=== PATIENT | male | born 1995 | race Caucasian/White ===

== ENCOUNTER 2017-08-29 03:18 | Inpatient (IN) | payer OTHER, MEDICAID ==
[~2017-08-29] VITALS: Ht 188 cm; Wt 96.1 kg
[2017-08-29] VITALS (8 sets, daily range): BP systolic 153–194; BP diastolic 70–85; PULSE 53–74; RESP 14–18; TEMP 96.1–98.8; O2SAT 95–100
[2017-08-29] MEDS ORDERED: ceFAZolin 2 GM PREMIX 50 ML ONE (03:27)
[2017-08-29] MEDS ORDERED: DIPHTH/TETANUS/ACEL PERTUSSIS (BOOSTER) 0.5 ML VIAL/PFS IM ONE (03:27)
[2017-08-29] MEDS ORDERED: GENTAMICIN 80 MG PREMIX 100 ML ONE (03:31)
[2017-08-29] MEDS ORDERED: ONDANSETRON HCL 4 MG/2 ML VIAL ONE (03:35)
[2017-08-29] MEDS ORDERED: MORPHINE SULFATE 4 MG/ML INJ ONE (03:35)
[2017-08-29 03:53] LABS: BASOPHIL % 0.2 % (0.0-2.0); EOSINOPHIL % 0.1 % (0.0-4.0); HEMATOCRIT 41.9 % (39.0-51.0); HEMOGLOBIN 14.6 GM/DL (13.0-17.0); LYMPH % 10.9 % (9.0-44.0); LYMPHOCYTE # 2.2 TH/MM3 (1.0-4.8); MEAN CELL VOLUME 95.6 FL (80.0-100.0); MEAN CORPUSCULAR HEMOGLOBIN 33.2 PG (27.0-34.0); MEAN CORPUSCULAR HGB CONC 34.8 % (32.0-36.0); MONO % 3.6 % (0.0-8.0); MONOCYTE # 0.7 TH/MM3 (0-0.9); NEUT % 85.2 % (16.0-70.0); PLATELET COUNT 422 TH/MM3 (150-450); RED BLOOD COUNT 4.39 MIL/MM3 (4.50-5.90); RED CELL DISTRIBUTION WIDTH 12.9 % (11.6-17.2); WHITE BLOOD COUNT 19.9 TH/MM3 (4.0-11.0)
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
[2017-08-29 04:00] LABS: INTERNATIONAL NORMALIZED RATIO 1.1 RATIO; PROTHROMBIN TIME - PATIENT 10.7 SEC (9.8-11.6)
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
[2017-08-29] MEDS ORDERED: IOHEXOL 350 MG/ML 10 ML VIAL (for RAD DIAG) IVCONTRAST ONE (04:01)
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
[2017-08-29] MEDS: LACTATED RINGER'S 1000 ML INJ 1,000 ML IV SCH ×3 (04:12→20:12)
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
[2017-08-29] MEDS ORDERED: SODIUM CHLORIDE 0.9% FLUSH 10 ML FLUSH IV FLUSH PRN ×2 (04:15→12:30)
[2017-08-29] MEDS ORDERED: MISCELLANEOUS NURSING INFORMATION XX SCH ×2 (04:15)
[2017-08-29] MEDS ORDERED: MAGNESIUM HYDROXIDE SUSP 30 ML CUP PO PRN ×3 (04:15→12:30)
[2017-08-29] MEDS ORDERED: CHLORHEXIDINE GLUCONATE 2 % 1 PACK (2 CLOTHS) TOP PRN (04:15)
[2017-08-29] MEDS ORDERED: MORPHINE SULFATE 2 MG/ML INJ IV PUSH PRN (04:15)
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
[2017-08-29] MEDS: MORPHINE SULFATE 4 MG/ML INJ IV PUSH PRN ×2 (04:30→08:24)
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
[2017-08-29] MEDS: DOCUSATE SODIUM 100 MG CAP PO SCH ×2 (09:00→20:24)
[2017-08-29] MEDS ORDERED: ceFAZolin INJ 1,000 MG VIAL ONE (09:35)
[2017-08-29] MEDS ORDERED: SODIUM CHLOR 0.9% 250 ML INJ 250 ML ONE (09:36)
[2017-08-29] MEDS ORDERED: VANCOMYCIN HCL 1000 MG VIAL ONE (09:36)
[2017-08-29] MEDS ORDERED: GENTAMICIN SULFATE 80 MG/2 ML VIAL ONE (09:36)
[2017-08-29] MEDS ORDERED: PERC5TAB12 PO (09:48)
[2017-08-29] MEDS ORDERED: DO NOT ADM ANY ANTICOAGULANT DRUGS PRN (11:38)
[2017-08-29] MEDS ORDERED: MIDAZOLAM HCL 2 MG/2 ML VIAL ONE (11:45)
[2017-08-29] MEDS ORDERED: LACTATED RINGER'S 1000 ML INJ 1,000 ML IV ONE (12:00)
[2017-08-29] MEDS ORDERED: NEOSTIGMINE 5 MG/5 ML SYRINGE IV PUSH ONE (12:00)
[2017-08-29] MEDS ORDERED: KETOROLAC TROMETHAMINE 30 MG/ML (IVP) VIAL IV PUSH ONE (12:00)
[2017-08-29] MEDS ORDERED: ROCURONIUM INJ 50 MG/5 ML SYRINGE IV PUSH ONE (12:00)
[2017-08-29] MEDS ORDERED: LIDOCAINE HCL 1% PF 5 ML SYRINGE OTHER ONE (12:00)
[2017-08-29] MEDS ORDERED: PROPOFOL 200 MG/20 ML AMP IV ONE (12:00)
[2017-08-29] MEDS ORDERED: ONDANSETRON HCL 4 MG/2 ML VIAL IV PUSH ONE (12:00)
[2017-08-29] MEDS ORDERED: GLYCOPYRROLATE 1 MG/5 ML SYRINGE IV PUSH ONE (12:00)
[2017-08-29] MEDS ORDERED: DEXAMETHASONE SOD PHOS 4 MG/ML VIAL IV ONE (12:00)
[2017-08-29] MEDS ORDERED: *MEPERIDINE 25 MG INJ VIAL PERIprocedural Use ONLY ONE (12:10)
--- NOTE | 2017-08-29 12:12 | PD.OP ---
cc: Kolby Frazier Jr., MD Operative Report Date of Surgery: Aug 29, 2017 Preoperative Diagnosis: Right grade 3 open tibia fracture Postoperative Diagnosis: Same Procedure: #1 irrigation debridement #2 placement of external fixation Anesthesia: Gen. Surgeon: Kolby Frazier Fitness Worker(s): SUN Stallworth The surgical procedure was assisted by my Advanced Registered Nurse Practitioner. My STICKER ON presence was necessary throughout this case for the manipulation and positioning of the surgical extremity. My STICKER ON was assisting me throughout the duration of this procedure. The skill set of an Advance Registered Nurse Practitioner was medically necessary to complete this procedure. During the surgical case, the forestry technician was working at the back table and the Advance Registered Nurse Practitioner was directly assisting me. Resident Surgeon: none Operation and Findings: This patient sustained severe injury to the right leg resulting in a type III open tibia fracture. Patient was seen and evaluated preoperatively and found to have too much swelling, soft tissue contamination and poor soft tissue condition to proceed with definitive open reduction internal fixation. Risk and benefits of surgery were discussed in depth with the patient's son and consent was confirmed. Surgical site was marked. Patient was brought to operating room and placed on the OR table. Patient was given IV sedation and GETA. Patient received IV antibiotics and timeout procedure was performed. Operative leg was prepped with alcohol followed by Hibiclens and draped in the usual sterile fashion. Two small incisions were made along the anterior tibia and the distal femur. Soft tissue was dissected bluntly. Cannulas were placed down to the cortex of bone. Pin sites were predrilled. Synthes SIMMONS-coated pins were placed into the tibia and femur. Fluoroscopy was used to confirm appropriate pin placement. An external fixator construct was now created with clamps and bars. Attention now turned to irrigation. The wound was extended to further examine the extent of the injury. There was severe comminution of the fracture and contamination. The wound was thoroughly irrigated and debrided to the extent of periosteal stripping of soft tissue degloving. Next attention was turned to reduction. Traction was applied. Fracture was manipulated. Good alignment of the fracture was obtained. Fluoroscopy was used to confirm appropriate alignment of fracture. The external fixator was now tightened to hold reduction. Sterile dressings were applied to the medial ankle wound. Patient was awakened and transferred to recovery room in stable condition. The soft tissue was reevaluated, the compartments were soft and compressible with no signs of compartment syndrome in the left lower extremity. We will reevaluate the condition of the soft tissue to determine an appropriate time for definitive fixation. IMPLANTS USED Synthes POSTP-OP PLAN OF ACTIVITY Antibiotics: Ancef, vancomycin 48 hours Antiocoagulation: Lovenox Weight bearing status: Nonweightbearing Dressing: Change daily, by RN starting postop day 2 Future procedure planned: OR thursday, Kolby Robbins Jr., MD Aug 29, 2017 12:12
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
[2017-08-29] MEDS ORDERED: ZOLPIDEM TARTRATE 5 MG TAB PO PRN (12:30)
[2017-08-29] MEDS ORDERED: oxyCODONE/ACETAMINOPHEN 5 MG/325 MG TAB PO PRN (12:30)
[2017-08-29] MEDS ORDERED: BISACODYL 10 MG SUPP RECTAL PRN ×2 (12:30)
[2017-08-29] MEDS ORDERED: Post-op Orders (for Pharmacy) XX ONE ×2 (12:30)
[2017-08-29] MEDS ORDERED: LACTULOSE SYRUP 20 GM/30 ML CUP PO PRN ×2 (12:30)
[2017-08-29] MEDS ORDERED: SENNOSIDES 8.6 MG TAB PO PRN ×2 (12:30)
[2017-08-29] MEDS ORDERED: PROMETHAZINE HCL 25 MG TAB PO PRN (12:30)
[2017-08-29] MEDS: oxyCODONE/ACETAMINOPHEN 5 MG/325 MG TAB PO PRN ×3 (12:50→21:51)
[2017-08-29] MEDS: KETOROLAC TROMETHAMINE 30 MG/ML (IVP) VIAL IVP SCH ×3 (12:50→23:26)
--- NOTE | 2017-08-29 13:10 | OTSOAPIP ---
PATIENT OFF FLOOR FOR SURGERY THIS DATE. WILL ATTEMPT EVALUATION TOMORROW POST SURGERY. Therapist: Elzbieta Leon, OTR/L Signature on file
[2017-08-29] MEDS: ONDANSETRON HCL 4 MG/2 ML VIAL IV PUSH PRN ×2 (15:12→20:27)
[2017-08-29] MEDS: MORPHINE SULFATE 8 MG/ML INJ IV PUSH PRN ×2 (15:57→20:25)
[2017-08-29] MEDS: DOCUSATE SODIUM 50 MG/SENNA 8.6 MG TAB PO SCH (20:24)
[2017-08-29] MEDS: VANCOMYCIN INJ 1,000 MG in SODIUM CHLOR 0.9% 250 ML INJ 250 ML IV SCH (20:32)
[2017-08-29] MEDS: SODIUM CHLORIDE 0.9% FLUSH 10 ML FLUSH IV FLUSH SCH (20:35)
[2017-08-29] MEDS ORDERED: DOCUSATE SODIUM 50 MG/SENNA 8.6 MG TAB PO SCH (21:00)
[2017-08-29] MEDS ORDERED: SODIUM CHLORIDE 0.9% FLUSH 10 ML FLUSH IV FLUSH SCH (21:00)
--- NOTE | 2017-08-29 22:29 | RADRPT ---
EXAM DATE/TIME: 08/29/2017 10:34 [facility] COMPARISON: No previous studies available for comparison. INDICATIONS : Lower leg fracture- ORIF. MEDICAL HISTORY : None. SURGICAL HISTORY : None. ENCOUNTER: Initial ACUITY: 1 day PAIN SCORE: Non-responsive. LOCATION: Right Lower leg. FINDINGS: 3 spot intraoperative fluoroscopic views of the right tibia and fibula demonstrate comminuted fractur e of the proximal tibial metaphysis and fibular shaft. External fixation hardware is present across t he tibia on image one. CONCLUSION: Intraoperative radiographs of the tibia and fibula fractures are noted as above. Lawrence Randall MD on August 29, 2017 at 22:27 Board Certified Radiologist. This report was verified electronically.
[2017-08-29] MEDS: ENOXAPARIN SODIUM 30 MG/0.3 ML SYRINGE SQ SCH (23:26)
[2017-08-30] VITALS (7 sets, daily range): BP systolic 122–159; BP diastolic 50–73; PULSE 46–100; RESP 16–18; TEMP 96.7–98.6; O2SAT 97–99
[2017-08-30] MEDS: oxyCODONE/ACETAMINOPHEN 5 MG/325 MG TAB PO PRN ×3 (02:22→10:10)
[2017-08-30] MEDS ORDERED: CHLORHEXIDINE GLUCONATE 2 % 1 PACK (2 CLOTHS) TOP SCH (04:00)
[2017-08-30 04:18] LABS: BASOPHIL % 0.2 % (0.0-2.0); EOSINOPHIL # 0.1 TH/MM3 (0-0.4); EOSINOPHIL % 0.6 % (0.0-4.0); HEMATOCRIT 27.9 % (39.0-51.0); HEMOGLOBIN 10.1 GM/DL (13.0-17.0); LYMPH % 20.7 % (9.0-44.0); LYMPHOCYTE # 2.1 TH/MM3 (1.0-4.8); MEAN CELL VOLUME 95.1 FL (80.0-100.0); MEAN CORPUSCULAR HEMOGLOBIN 34.5 PG (27.0-34.0); MEAN PLATELET VOLUME 8.1 FL (7.0-11.0); MONO % 9.7 % (0.0-8.0); NEUT % 68.8 % (16.0-70.0); PLATELET COUNT 221 TH/MM3 (150-450); RED BLOOD COUNT 2.93 MIL/MM3 (4.50-5.90); WHITE BLOOD COUNT 10.2 TH/MM3 (4.0-11.0)
[2017-08-30 04:36] LABS: BICARBONATE 29.8 MEQ/L (21.0-32.0); CALCIUM 7.9 MG/DL (8.5-10.1); CREATININE 0.69 MG/DL (0.60-1.30)
[2017-08-30 04:37] LABS: MEAN CORPUSCULAR HGB CONC 36.3 % (32.0-36.0)
[2017-08-30] MEDS: KETOROLAC TROMETHAMINE 30 MG/ML (IVP) VIAL IVP SCH ×4 (06:09→23:49)
[2017-08-30] MEDS: LACTATED RINGER'S 1000 ML INJ 1,000 ML IV SCH (06:09)
[2017-08-30 06:50] LABS: BANDS 3 % (0-6); LYMPHOCYTES 19 % (9-44); MONOCYTES 5 % (0-8); NEUTROPHIL # MANUAL DIFF 7.7 TH/MM3 (1.8-7.7); POLYS (SEG NEUTROPHILS) 72 % (16-70)
[2017-08-30 06:53] LABS: OVALOCYTES 1+ (NORMAL)
[2017-08-30] MEDS: DOCUSATE SODIUM 50 MG/SENNA 8.6 MG TAB PO SCH ×2 (08:59→20:43)
[2017-08-30] MEDS: DOCUSATE SODIUM 100 MG CAP PO SCH (08:59)
[2017-08-30] MEDS: SODIUM CHLORIDE 0.9% FLUSH 10 ML FLUSH IV FLUSH SCH ×2 (09:00→20:38)
[2017-08-30] MEDS: VANCOMYCIN INJ 1,000 MG in SODIUM CHLOR 0.9% 250 ML INJ 250 ML IV SCH ×2 (09:00→20:48)
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
[2017-08-30] MEDS: DIAZEPAM 2 MG TAB PO SCH ×2 (12:39→22:34)
[2017-08-30] MEDS: MAGNESIUM HYDROXIDE SUSP 30 ML CUP PO SCH ×2 (12:41→20:43)
[2017-08-30] MEDS: ACETAMINOPHEN 1000 MG/100 ML 100 ML IV SCH ×3 (12:41→22:34)
[2017-08-30] MEDS: ENOXAPARIN SODIUM 30 MG/0.3 ML SYRINGE SQ SCH ×2 (12:41→23:00)
[2017-08-30] MEDS ORDERED: PERI PO (13:12)
[2017-08-30] MEDS ORDERED: MAGN30S PO (13:12)
[2017-08-30] MEDS ORDERED: WALKER WHEELS/F1 MIS (13:14)
--- NOTE | 2017-08-30 13:15 | HHI.FF ---
Face to Face Verification Diagnosis: (1) Fracture tibia/fibula Physical Therapy Order: Evaluate and Treat, Improve ambulation, Strength and gait training Home Health Nursing Order: Medical education Signs/symptoms of disease process Medication education-adverse effect I have seen patient Rodriguez Guaman, II on 08/30/17. My clinical findings support the need for the requested home health care services because: Ltd mobility - disease progression Deconditioned w/ increased weakness Limited ability to care for self High risk of falls Infection w/ risk of complications I certify that my clinical findings support that this patient is homebound because: Post-op weakness Unsteady gait/balance Unsafe to leave home unassisted Sin-qsjwoamthu-mpyfolca bed/chair Unable to use public transportation The exam, history, and the medical decision-making described in the above note were completed with the assistance of the mid-level provider. I reviewed and agree with the findings presented. I attest that I had a hldt-ko-[id number] encounter with the patient on the same day, and personally performed and documented my assessment and findings in the medical record. Renee Robins Aug 30, 2017 13:15 Juan Jose Vaughan MD Aug 30, 2017 14:49
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
[2017-08-30] MEDS: MULTIVITAMINS/MINERALS THERAPEUTIC TAB PO SCH (20:38)
[2017-08-30] MEDS ORDERED: SODIUM CHLORID 0.9% 500 ML IV PRN (23:30)
[2017-08-30] MEDS ORDERED: LACTATED RINGER'S 1000 ML IV PRN (23:30)
[2017-08-30] MEDS ORDERED: CHLORHEXIDINE GLUCONATE 2 % 1 PACK (2 CLOTHS) TOPICAL PRN (23:30)
[2017-08-30] MEDS ORDERED: POVIDONE IODINE 5% (ANTISEPSIS KIT) 4 APPLICATIONS EACH NARE PRN (23:30)
[2017-08-31] MEDS: ONDANSETRON HCL 4 MG/2 ML VIAL IV PUSH PRN (02:46)
[2017-08-31] MEDS: ACETAMINOPHEN 1000 MG/100 ML 100 ML IV SCH (05:28)
[2017-08-31] MEDS: DIAZEPAM 2 MG TAB PO SCH ×3 (06:00→22:09)
[2017-08-31 06:07] LABS: AUTOMATED NEUTROPHIL # 3.1 TH/MM3 (1.8-7.7); BASOPHIL % 0.4 % (0.0-2.0); EOSINOPHIL # 0.1 TH/MM3 (0-0.4); EOSINOPHIL % 1.4 % (0.0-4.0); HEMATOCRIT 26.7 % (39.0-51.0); HEMOGLOBIN 9.7 GM/DL (13.0-17.0); LYMPH % 36.6 % (9.0-44.0); LYMPHOCYTE # 2.1 TH/MM3 (1.0-4.8); MEAN CELL VOLUME 95.4 FL (80.0-100.0); MEAN CORPUSCULAR HEMOGLOBIN 34.7 PG (27.0-34.0); MEAN PLATELET VOLUME 8.7 FL (7.0-11.0); MONO % 7.8 % (0.0-8.0); MONOCYTE # 0.5 TH/MM3 (0-0.9); NEUT % 53.8 % (16.0-70.0); PLATELET COUNT 177 TH/MM3 (150-450); RED CELL DISTRIBUTION WIDTH 13.3 % (11.6-17.2); WHITE BLOOD COUNT 5.8 TH/MM3 (4.0-11.0)
[2017-08-31] MEDS: KETOROLAC TROMETHAMINE 30 MG/ML (IVP) VIAL IVP SCH ×3 (06:09→22:10)
[2017-08-31 06:14] LABS: MEAN CORPUSCULAR HGB CONC 36.3 % (32.0-36.0)
[2017-08-31 06:25] LABS: BICARBONATE 29.3 MEQ/L (21.0-32.0); CALCIUM 7.9 MG/DL (8.5-10.1); CREATININE 0.63 MG/DL (0.60-1.30)
[2017-08-31 06:31] VITALS: BP 160/71; PULSE 73; RESP 16; TEMP 97.2; O2SAT 100
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
[2017-08-31] MEDS ORDERED: GENTAMICIN SULFATE 80 MG/2 ML VIAL ONE (07:21)
[2017-08-31] MEDS ORDERED: VANCOMYCIN HCL 1000 MG VIAL ONE (07:22)
[2017-08-31] MEDS ORDERED: ceFAZolin 2 GM PREMIX 50 ML ONE (07:23)
[2017-08-31 08:05] VITALS: BP 143/70; PULSE 85; RESP 19; TEMP 97.5; O2SAT 100
[2017-08-31] MEDS: MULTIVITAMINS/MINERALS THERAPEUTIC TAB PO SCH ×2 (09:00→21:02)
[2017-08-31] MEDS: VANCOMYCIN INJ 1,000 MG in SODIUM CHLOR 0.9% 250 ML INJ 250 ML IV SCH (09:00)
[2017-08-31] MEDS: SODIUM CHLORIDE 0.9% FLUSH 10 ML FLUSH IV FLUSH SCH ×2 (09:00→21:00)
[2017-08-31] MEDS: DOCUSATE SODIUM 50 MG/SENNA 8.6 MG TAB PO SCH ×2 (09:00→21:00)
[2017-08-31] MEDS: MAGNESIUM HYDROXIDE SUSP 30 ML CUP PO SCH ×2 (09:00→21:00)
[2017-08-31] MEDS ORDERED: FAMOTIDINE 20 MG/2 ML VIAL ONE (09:01)
--- NOTE | 2017-08-31 11:39 | PD.OP ---
cc: Ryan Barry MD Operative Report Date of Surgery: Aug 31, 2017 Preoperative Diagnosis: Open right proximal tibia shaft fracture Postoperative Diagnosis: Procedure: Removal of external fixation, irrigation debridement of open right tibia fracture, intramedullary nail fixation right tibia Anesthesia: Gen. Surgeon: Ryan Barry Signals Analyst(s): OMAYRA To PA-C The surgical procedure was assisted by my physician contact lens assistant. My P.A. presence was necessary throughout this case for the manipulation and positioning of the surgical extremity. My P.A. was assisting me throughout the duration of this procedure. The skill set of a physician contact lens assistant was medically necessary to complete this procedure. During the surgical case the medical surgical tech was working at the back table and the physician contact lens assistant was directly assisting me. Operation and Findings: Implants: ITS [9]mm x [360]mm tibial nail Plan of activity: Nonweightbearing right leg Patient was seen and examined preoperatively. An informed consent was obtained from patient after detailed discussion of risk and benefits. Risks of surgery include bleeding, infection, painful hardware, nonunion, malunion, leg length discrepancy, need for hardware removal, and medical complications associated with anesthesia including blood clots, stroke, heart attack, and were discussed. Operative site was marked. Patient was brought to the operating room placed on or table. Patient received IV antibiotics and was given IV sedation GETA. Timeout procedure was performed. Procedure began with removal of external fixation. Clamps were loosened. Clamps and bars were now removed from the pins. The pins were now removed using a drill. Operative leg was now prepped with alcohol Hibiclens and draped in usual sterile fashion. Procedure began with irrigation and debridement of the open fracture. The traumatic laceration was opened anteriorly. Skin subcutaneous tissue and fascia were sharply debrided. Overall the tissue appeared to be relatively clean and healthy. Curettes were used to debride bone. Multiple small bone fragments were excised. After thorough debridement, the wound was thoroughly irrigated with 3 L of sterile saline. Next attention was turned towards reduction of fracture. Traction was applied. Fracture was reduced. There was comminution of the fracture. The fracture reduced and appropriate alignment was achieved. Next a 3 cm incision was made proximal to the patella. Quadriceps tendon was split in line with fibers. Cannulas were placed in the patellofemoral joint to protect the articular surface at all times. A guidepin was placed into the tibia and advanced in the tibial canal. Fluoroscopy was used to confirm appropriate guidepin placement. An opening reamer was used to open the tibial canal. A ball-tipped guidewire was advanced down the tibial canal. Guidepin was passed across the fracture site into the center of the distal tibia. Fluoroscopy confirmed guidepin placement. The nail length was now measured. 3 Steinmann pins were placed proximally to help control the reduction of the proximal segment during reaming and nail placement. The fracture was now held in a reduced position and the canal was reamed. The canal was reamed up to size 10.5. A ITS nail was now selected. Next the nail was fully seated. Using the insertion handle as a guide 4 proximal interlocking screws were placed. At this point the insertion jig was removed. Rotational alignment of the fracture was obtained. Gentle traction was also applied to restore length of the tibia. The tibia was extremely comminuted and difficult to gauge rotation and length. The fibula fracture was visualized and used to aid in obtaining appropriate reduction of the tibia fracture. Using perfect klawock technique 2 distal interlocking screws were placed. Fluoroscopy confirmed excellent of fracture with well-placed hardware. Incisions and the knee joint were thoroughly irrigated with sterile saline. Fascia was closed with #1 PDS, subcutaneous tissues closed with 3-0 PDS and skin was closed with 3-0 nylon and hugo. Sterile dressings were applied. Patient was awakened and transferred to recovery in stable condition. Ryan Barry MD Aug 31, 2017 11:39
[2017-08-31] MEDS ORDERED: PROPOFOL 200 MG/20 ML AMP IV ONE (12:00)
[2017-08-31] MEDS ORDERED: LIDOCAINE HCL 1% PF 5 ML SYRINGE OTHER ONE (12:00)
[2017-08-31] MEDS ORDERED: SUCCINYLCHOLINE CHLORIDE 100 MG/5 ML SYRINGE IV PUSH ONE (12:00)
[2017-08-31] MEDS ORDERED: ROCURONIUM INJ 50 MG/5 ML SYRINGE IV PUSH ONE (12:00)
[2017-08-31] MEDS ORDERED: ONDANSETRON HCL 4 MG/2 ML VIAL IV ONE (12:00)
[2017-08-31] MEDS ORDERED: GLYCOPYRROLATE 1 MG/5 ML SYRINGE IV PUSH ONE (12:00)
[2017-08-31] MEDS ORDERED: DEXAMETHASONE SOD PHOS 4 MG/ML VIAL IV ONE (12:00)
[2017-08-31] MEDS ORDERED: NEOSTIGMINE 5 MG/5 ML SYRINGE IV PUSH ONE (12:00)
[2017-08-31] MEDS ORDERED: DO NOT ADM ANY ANTICOAGULANT DRUGS PRN (12:03)
[2017-08-31] MEDS ORDERED: MIDAZOLAM HCL 2 MG/2 ML VIAL ONE (12:12)
[2017-08-31] MEDS ORDERED: MORPHINE SULFATE 4 MG/ML INJ ONE (12:13)
[2017-08-31] MEDS ORDERED: *morphine SULFATE 10 MG/ML PERIprocedure ONLY ONE (12:25)
[2017-08-31] MEDS ORDERED: *MEPERIDINE 25 MG INJ VIAL PERIprocedural Use ONLY ONE (12:51)
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
[2017-08-31] MEDS: ceFAZolin 2 GM PREMIX 50 ML IV SCH ×2 (13:00→21:02)
[2017-08-31] MEDS ORDERED: diphenhydrAMINE HCL 25 MG CAP PO PRN (13:00)
[2017-08-31] MEDS: LACTATED RINGER'S 1000 ML INJ 1,000 ML IV SCH ×2 (13:00→23:20)
[2017-08-31] MEDS: CALCIUM/VITAMIN D 250 MG/125 U TAB PO SCH ×2 (13:32→16:35)
[2017-08-31] MEDS: GENTAMICIN 80 MG PREMIX 100 ML IV SCH ×2 (13:33→22:56)
[2017-08-31] MEDS: SODIUM CHLORIDE 0.9% FLUSH 10 ML FLUSH IV FLUSH PRN (13:40)
[2017-08-31] MEDS: MORPHINE SULFATE 8 MG/ML INJ IV PUSH PRN ×3 (13:40→21:05)
[2017-08-31] MEDS ORDERED: ERGOCALCIFEROL (VIT D2) 50,000 UNIT CAP PO SCH (14:00)
--- NOTE | 2017-08-31 15:01 | RADRPT ---
EXAM DATE/TIME: 08/31/2017 11:08 [facility] COMPARISON: TIBIA/FIBULA RIGHT (AP/LAT), August 29, 2017, 10:34. INDICATIONS : ORIF right tibia fracture. MEDICAL HISTORY : Unobtainable. SURGICAL HISTORY : Unobtainable. ENCOUNTER: Subsequent ACUITY: 3 days PAIN SCORE: Non-responsive. LOCATION: Right lower leg. FINDINGS: Two view intra-or examination of the right tibia demonstrates interval placement of a medullary anastasia a nd multiple osseous screws securing a comminuted proximal tibial metadiaphyseal fracture. Main fractu re fragments are in anatomic alignment. Displaced fracture through the fibula persists. CONCLUSION: Open reduction and internal fixation of proximal metadiaphyseal fracture as detailed above. Yifan García MD on August 31, 2017 at 14:58 Board Certified Radiologist. This report was verified electronically.
[2017-08-31 15:54] VITALS: BP 189/73; PULSE 77; RESP 19; TEMP 96.8; O2SAT 100
--- NOTE | 2017-08-31 16:06 | RADRPT ---
EXAM DATE/TIME: 08/31/2017 15:43 [facility] COMPARISON: CT THORAX W CONTRAST, August 29, 2017, 3:52. CHEST SINGLE AP, August 29, 2017, 3:28. INDICATIONS : Short of breath; evaluate infiltrate. MEDICAL HISTORY : None. SURGICAL HISTORY : None. ENCOUNTER: Subsequent ACUITY: 2 days PAIN SCORE: 0/10 LOCATION: Bilateral chest FINDINGS: A single view of the chest demonstrates the lungs to be symmetrically aerated without evidence of mas s, infiltrate or effusion. The cardiomediastinal contours are unremarkable. Osseous structures are intact. CONCLUSION: No acute disease. Jeff Hughes MD on August 31, 2017 at 16:04 Board Certified Radiologist. This report was verified electronically.
[2017-08-31 21:30] VITALS: BP 144/73; PULSE 73; RESP 16; TEMP 98.5; O2SAT 98
[2017-09-01] VITALS (8 sets, daily range): BP systolic 133–165; BP diastolic 63–84; PULSE 58–73; RESP 16–17; TEMP 96.6–98.6; O2SAT 97–100
[2017-09-01] MEDS: ONDANSETRON HCL 4 MG/2 ML VIAL IV PUSH PRN ×3 (00:43→21:28)
[2017-09-01] MEDS: MORPHINE SULFATE 8 MG/ML INJ IV PUSH PRN ×7 (00:43→21:29)
[2017-09-01] MEDS: ceFAZolin 2 GM PREMIX 50 ML IV SCH ×3 (04:46→21:28)
[2017-09-01] MEDS: KETOROLAC TROMETHAMINE 30 MG/ML (IVP) VIAL IVP SCH (06:01)
[2017-09-01] MEDS: DIAZEPAM 2 MG TAB PO SCH ×3 (06:01→23:00)
[2017-09-01] MEDS: GENTAMICIN 80 MG PREMIX 100 ML IV SCH ×3 (06:01→23:00)
[2017-09-01 06:53] LABS: HEMATOCRIT 23.2 % (39.0-51.0); HEMOGLOBIN 8.2 GM/DL (13.0-17.0)
[2017-09-01] MEDS: MAGNESIUM HYDROXIDE SUSP 30 ML CUP PO SCH ×2 (09:00→21:00)
[2017-09-01] MEDS: DOCUSATE SODIUM 50 MG/SENNA 8.6 MG TAB PO SCH ×2 (10:12→21:29)
[2017-09-01] MEDS: SODIUM CHLORIDE 0.9% FLUSH 10 ML FLUSH IV FLUSH SCH ×2 (10:12→21:41)
[2017-09-01] MEDS: CALCIUM/VITAMIN D 250 MG/125 U TAB PO SCH ×3 (10:13→18:00)
[2017-09-01] MEDS: MULTIVITAMINS/MINERALS THERAPEUTIC TAB PO SCH ×2 (10:13→21:29)
[2017-09-01] MEDS: ENOXAPARIN SODIUM 40 MG/0.4 ML SYRINGE SQ SCH (10:14)
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
[2017-09-01] MEDS: LACTATED RINGER'S 1000 ML INJ 1,000 ML IV SCH ×2 (15:42→19:00)
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
[2017-09-01] MEDS: SODIUM CHLORIDE 0.9% FLUSH 10 ML FLUSH IV FLUSH PRN (15:51)
[2017-09-02] VITALS: BP 164/78; PULSE 64; RESP 17; TEMP 97.9; O2SAT 98
[2017-09-02] MEDS: MORPHINE SULFATE 8 MG/ML INJ IV PUSH PRN ×4 (00:34→15:20)
[2017-09-02 04:35] LABS: HEMATOCRIT 23.2 % (39.0-51.0); HEMOGLOBIN 8.4 GM/DL (13.0-17.0)
[2017-09-02 04:50] VITALS: BP 156/77; PULSE 63; RESP 17; TEMP 97.7; O2SAT 97
[2017-09-02] MEDS: LACTATED RINGER'S 1000 ML INJ 1,000 ML IV SCH (05:00)
[2017-09-02] MEDS: ceFAZolin 2 GM PREMIX 50 ML IV SCH ×3 (05:22→21:50)
[2017-09-02] MEDS: DIAZEPAM 2 MG TAB PO SCH ×3 (05:22→22:00)
[2017-09-02] MEDS: GENTAMICIN 80 MG PREMIX 100 ML IV SCH (06:41)
[2017-09-02] MEDS ORDERED: BISACODYL EC 5 MG TABEC PO ONE (07:30)
[2017-09-02] MEDS ORDERED: BISACODYL 10 MG SUPP RECTAL ONE (07:30)
[2017-09-02 08:00] VITALS: BP 179/67; PULSE 74; RESP 18; TEMP 97.8; O2SAT 99
[2017-09-02] MEDS: MULTIVITAMINS/MINERALS THERAPEUTIC TAB PO SCH ×2 (09:00→21:51)
[2017-09-02] MEDS: LACTULOSE SYRUP 20 GM/30 ML CUP PO SCH (09:16)
[2017-09-02] MEDS: MAGNESIUM HYDROXIDE SUSP 30 ML CUP PO SCH ×2 (09:16→21:51)
[2017-09-02] MEDS: CALCIUM/VITAMIN D 250 MG/125 U TAB PO SCH ×3 (09:16→17:29)
[2017-09-02] MEDS: DOCUSATE SODIUM 50 MG/SENNA 8.6 MG TAB PO SCH ×2 (09:16→21:51)
[2017-09-02] MEDS: SODIUM CHLORIDE 0.9% FLUSH 10 ML FLUSH IV FLUSH SCH ×2 (09:22→21:51)
[2017-09-02] MEDS: ONDANSETRON HCL 4 MG/2 ML VIAL IV PUSH PRN (09:39)
[2017-09-02] MEDS: ENOXAPARIN SODIUM 40 MG/0.4 ML SYRINGE SQ SCH (11:00)
[2017-09-02 12:00] VITALS: BP 168/74; PULSE 55; RESP 18; TEMP 98.2; O2SAT 95
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
[2017-09-02] MEDS ORDERED: ACETAMINOPHEN/HYDROcodone 325 MG/7.5 MG TAB PO PRN (12:30)
[2017-09-02] MEDS: GABAPENTIN 300 MG CAP PO SCH ×2 (15:23→17:29)
[2017-09-02 16:00] VITALS: BP 171/73; PULSE 66; RESP 18; TEMP 98.7; O2SAT 98
[2017-09-02] MEDS ORDERED: BEDSIDE COMMODE1 MI1 (16:06)
[2017-09-02] MEDS ORDERED: WHEEMIS3 (16:06)
[2017-09-02] MEDS: ACETAMINOPHEN/HYDROcodone 325 MG/10 MG TAB PO PRN ×2 (17:31→21:52)
[2017-09-02 20:00] VITALS: BP 169/74; PULSE 94; RESP 18; TEMP 98.9; O2SAT 98
[2017-09-03] VITALS: BP 143/72; PULSE 64; RESP 16; TEMP 98.2; O2SAT 98
[2017-09-03 00:17] VITALS: O2SAT 98
[2017-09-03] MEDS: SODIUM CHLORIDE 0.9% FLUSH 10 ML FLUSH IV FLUSH PRN ×2 (03:48→04:45)
[2017-09-03] MEDS: MORPHINE SULFATE 8 MG/ML INJ IV PUSH PRN (03:49)
[2017-09-03] MEDS: ceFAZolin 2 GM PREMIX 50 ML IV SCH (03:54)
[2017-09-03 04:01] LABS: HEMATOCRIT 27.4 % (39.0-51.0); HEMOGLOBIN 9.9 GM/DL (13.0-17.0)
[2017-09-03] MEDS: ONDANSETRON HCL 4 MG/2 ML VIAL IV PUSH PRN (04:45)
[2017-09-03] MEDS: ACETAMINOPHEN/HYDROcodone 325 MG/10 MG TAB PO PRN ×4 (04:45→17:03)
[2017-09-03] MEDS: DIAZEPAM 2 MG TAB PO SCH ×2 (04:45→13:45)
[2017-09-03] MEDS ORDERED: XARE10TA PO (06:43)
[2017-09-03] MEDS ORDERED: ENDO10TA8 PO (06:43)
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
[2017-09-03] MEDS: GABAPENTIN 300 MG CAP PO SCH ×3 (07:40→17:03)
[2017-09-03] MEDS: MULTIVITAMINS/MINERALS THERAPEUTIC TAB PO SCH (07:40)
[2017-09-03] MEDS: CALCIUM/VITAMIN D 250 MG/125 U TAB PO SCH ×3 (07:41→17:03)
[2017-09-03] MEDS: LACTULOSE SYRUP 20 GM/30 ML CUP PO SCH (07:47)
[2017-09-03] MEDS: MAGNESIUM HYDROXIDE SUSP 30 ML CUP PO SCH (07:47)
[2017-09-03] MEDS: DOCUSATE SODIUM 50 MG/SENNA 8.6 MG TAB PO SCH (07:47)
[2017-09-03] MEDS: SODIUM CHLORIDE 0.9% FLUSH 10 ML FLUSH IV FLUSH SCH (07:48)
[2017-09-03 08:00] VITALS: BP 162/81; PULSE 64; RESP 19; TEMP 96.9; O2SAT 99
[2017-09-03] MEDS ORDERED: HYDR-3580 PO (11:49)
[2017-09-03] MEDS ORDERED: NEUR300C PO (11:49)
[2017-09-03] MEDS ORDERED: ZOFR4TAB PO (11:53)
[2017-09-03 12:00] VITALS: BP 144/76; PULSE 65; RESP 18; TEMP 97.4; O2SAT 100
[2017-09-03] MEDS: ENOXAPARIN SODIUM 40 MG/0.4 ML SYRINGE SQ SCH (12:10)
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
== END 2017-09-03 18:27 | disposition home health service (06) | DRG 493 ==
LOC: NEPC 03:18 → NEDA 03:52 → N06B 12:57
PROVIDERS: ADMIT Surgery; ATTEND Surgery
PROC: 0JDN3ZZ Extraction of Right Lower Leg Subcutaneous Tissue and Fascia, Percutaneous Approach (ICD-10-PCS; 2017-08-29)
PROC: 0QSG35Z Reposition Right Tibia with External Fixation Device, Percutaneous Approach (ICD-10-PCS; principal; 2017-08-29 09:31)
PROC: 0QSG06Z Reposition Right Tibia with Intramedullary Internal Fixation Device, Open Approach (ICD-10-PCS; 2017-08-31)
PROC: 0QPGX5Z Removal of External Fixation Device from Right Tibia, External Approach (ICD-10-PCS; 2017-08-31)
DX: S82.251C Displaced comminuted fracture of shaft of right tibia, initial encounter for open fracture type IIIA, IIIB, or IIIC (principal); J98.11 Atelectasis; F17.200 Nicotine dependence, unspecified, uncomplicated; S82.401A Unspecified fracture of shaft of right fibula, initial encounter for closed fracture; V29.9XXA Motorcycle rider (driver) (passenger) injured in unspecified traffic accident, initial encounter
CPT/HCPCS: 70450; 71045; 71260; 72125; 72170; 73590; 74177; 76000; 80048; 85007; 85014; 85018; 85025; 85027; 85610; 85730; 86850; 86900; 86901; 90715; 94150; C1713; J0131; J0330; J0690; J1100; J1580; J1650; J1885; J2175; J2250; J2270; J2405; J2710; J3010; J3370; J7050; J7120; Q0169; Q9967

== ENCOUNTER 2018-04-02 05:35 | Inpatient (IN) ==
[2018-04-02] MEDS ORDERED: Vancomycin Inj 1,000 MG in Sodium Chlor 0.9% Inj 250 ML IV.SIG SCH (06:00)
[2018-04-02] MEDS ORDERED: Chlorhexidine Gluconate 2% 1 Pack (2 Cloths) TOPICAL ONE (06:00)
[2018-04-02] MEDS ORDERED: Sodium Chlor 0.9% Inj 500 ML IV.CONT ONE (06:00)
[2018-04-02] MEDS ORDERED: Metoprolol Tartrate 25 MG Tablet PO ONE (06:00)
[2018-04-02] MEDS ORDERED: Chlorhexidine 4% Topical 120 APPLIC/120 ML Bottle TOPICAL SCH (06:00)
[2018-04-02] MEDS ORDERED: Famotidine PF Inj 20 MG/2 ML Vial ONE (06:20)
[2018-04-02] MEDS ORDERED: fentaNYL Citrate Inj 100 MCG/2 ML Ampul ONE (06:20)
[2018-04-02] MEDS ORDERED: Ketamine Inj 50 MG/5 ML Syringe IV.PUSH ONE (06:32)
[2018-04-02] MEDS ORDERED: Lidocaine PF 1% Inj 5 ML Syringe OTHER ONE (06:54)
[2018-04-02] MEDS: ceFAZolin 2 GM Premix Inj 2 GM/50 ML PIGGYBACK IV.SIG SCH ×3 (08:07→23:53)
[2018-04-02] MEDS ORDERED: Bupivacaine/Epinephrine Inj 0.25% 50 ML Vial ONE (08:37)
--- NOTE | 2018-04-02 09:15 | P.OP ---
- Preoperative Diagnosis (1) Other fracture of shaft of right tibia, subsequent encounter for open fracture type I or II with nonunion Date of procedure: 04/02/18 Procedure: Removal of deep hardware, open treatment of right tibia nonunion, intramedullary nail fixation right tibia, iliac crest bone grafting with Infuse Anesthesia: GETA Surgeon: Ryan Barry MD Operation and Findings: Implants: Synthes 11 mm x [360]mm tibial nail Plan of activity: Toe-touch weightbearing Patient was seen and examined preoperatively. 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 Informed consent was obtained from patient after detailed discussion of risk and benefits. Risks of surgery include bleeding, infection, painful hardware, nonunion, malunion, leg length discrepancy, need for hardware removal, and medical complications associated with anesthesia including blood clots, stroke, heart attack, and were discussed. Operative site was marked. Patient was brought to the operating room placed on or table. Patient was given IV sedation GETA. Operative leg was prepped with alcohol Hibiclens and draped in usual sterile fashion. Timeout procedure was performed. Antibiotics were held until after cultures were obtained. Procedure began with removal of deep hardware. Multiple small incisions were made around the previously placed screws proximally distally. Scar tissue was incised around each screw. The screw heads were identified. The screws were partially removed. At this point a 2 similar incision was made over the medial patellar tendon. A medial arthrotomy was created. A guidepin was placed into the proximal tibia into the tibial nail. Fluoroscopy confirmed appropriate guidepin placement. An opening reamer was placed over the guidepin to help remove bone around the nail. A nail extractor was screwed into the nail. All of the screws were now completely removed. The nail was now back slapped and removed. The fracture site was now visualized under fluoroscopy. There was clear nonunion of the fracture. There was visible motion under fluoroscopy. At this point attention was turned towards debridement of the nonunion. A 4 inch incision was made over the medial aspect of the tibia. Full-thickness skin flaps were elevated. The fracture site was visualized. The fracture site was now debrided with curettes, rongeurs, and TPS bur. A significant amount of fibrous tissue had grown within the fracture site. This was all debrided back to healthy bleeding bone. Next attention was turned towards intramedullary nail fixation of the nail. Patients leg was placed over a triangle. The fracture was visualized. There was displacement of the fracture when the knee was flexed. Decision was made to proceed with suprapatellar nailing. Traction was applied. Fracture was reduced. There was comminution of the fracture. The fracture reduced relatively well. There was significant comminution. Next a 3 cm incision was made proximal to the patella. Quadriceps tendon was split in line with fibers. Cannulas were placed in the patellofemoral joint to protect the articular surface at all times. A guidepin was placed into the tibia and advanced in the tibial canal. Fluoroscopy was used to confirm appropriate guidepin placement. An opening reamer was used to open the tibial canal. A ball-tipped guidewire was advanced down the tibial canal. Guidepin was passed across the fracture site into the center of the distal tibia. Fluoroscopy confirmed guidepin placement. The nail length was now measured. The fracture was now held in a reduced position and the canal was reamed up to size 12. A Synthes 11 mm tibia nail was now selected. Next the nail was fully seated. Using perfect kenaitze technique 2 distal interlocking screws were placed. Using the insertion handle as a guide 4 proximal interlocking screws were placed. Fluoroscopy confirmed excellent of fracture with well-placed hardware. Incisions and the knee joint were thoroughly irrigated with sterile saline. At this point attention was turned iliac crest bone grafting. A 3 cm incision was made over the iliac crest. Subcutaneous tissue dissected with Bovie. Osteotomes were used to create a window in the iliac crest. Bone graft was now harvested from the iliac crest using curettes. After completion of harvesting of the bone graft fascia was closed with #1 Vicryl. Subcutaneous tissues closed with 3-0 Vicryl. Skin was closed with hugo. The incision area was infiltrated with quarter percent Marcaine with epinephrine. At this point a medium Infuse graft was opened. The Infuse was mixed appropriately and allowed to set for over 15 minutes. This was mixed with iliac crest bone graft. This bone graft with Infuse was now packed in the fracture nonunion site. The defect was completely filled. The incision over the fracture site was now closed with 3-0 PDS and 3-0 nylon. The remainder of the incisions were closed next. Fascia was closed with #1 Vicryl, subcutaneous tissues closed with 3-0 Vicryl and skin was closed with hugo. Sterile dressings were applied. Patient was awakened and transferred to recovery in stable condition.
[2018-04-02] MEDS ORDERED: Post-op Orders (for Pharmacy) OTHER STA (09:35)
[2018-04-02] MEDS ORDERED: Morphine Sulfate Inj 8 MG/ML Vial ONE (09:56)
[2018-04-02] MEDS ORDERED: ceFAZolin Inj 2,000 MG in Sodium Chlor 0.9% Inj 80 ML IV.SIG SCH (10:00)
--- NOTE | 2018-04-02 10:01 | P.PNOP ---
Subjective Interval history: Transferred to PACU in stable condition. Surgery without any complications. Physical Exam Vital signs: Vital Signs 04/02/18 06:00 Temperature 98.6 F Pulse Rate 56 L Respiratory Rate 16 Blood Pressure 138/69 Pulse Oximetry 96 Intake & Output 04/01/18 04/02/18 04/02/18 18:59 06:59 18:59 Weight 80.9 kg Other: Weight On Admission 80.9 kg Narrative: Right lower extremity: Clean dry dressings over iliac crest graft site. Clean dry dressings over knee and tibia. Compartments are soft. Intact distal pulses and good capillary refills. Assessment and Plan - Assessment and Plan Nonunion of right open proximal tibia with removal of hardware and irrigation debridement with iliac crest bone graft and infuse with intramedullary nail fixation POD 0 Toe-touch weightbearing right lower extremity Physical therapy for passive and active range of motion of knee and ankle Cultures obtained, Lovenox Daily dressing changes beginning POD 2 Incentive spirometry SCDs and KATHERIN leonard
--- NOTE | 2018-04-02 10:02 | P.DCO ---
- Nursing Dressing changes: Daily dressing change, Marshall wrap, 4x4s, Xeroform - Certification Need for Home Health services: I have seen patient Rodrigeuz Guaman II on 04/02/18. My clinical findings support the need for the requested home health care services because: Need for Home Health Services: Limited mobility due to disease progression Homebound Certification: I certify that my clinical findings support that this patient is homebound because: Homebound Certification: Post-op weakness
[2018-04-02] MEDS ORDERED: *Meperidine Inj 25 MG/ML Vial PERIprocedural Use ONLY ONE (10:17)
[2018-04-02] MEDS ORDERED: Bisacodyl 10 MG Supp RECTAL PRN (11:00)
[2018-04-02] MEDS: Morphine Inj 4 MG/ML Vial IV.PUSH PRN ×3 (11:19→23:55)
--- NOTE | 2018-04-02 12:49 | XR ---
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 CLINICAL DATA: This is the patient's subsequent encounter. Patient reports that signs and symptoms h ave been present for 1 day and indicates a pain score of Nonresponsive. MEDICAL/SURGICAL HISTORY: Non-responsive. . Intramedullary anastasia of right tibia. COMPARISON: [facility] [place], CT TIB/FIB RIGHT W/O CONTRAST, 03/25/2018. . FINDINGS: Intramedullary anastasia and fixation screws are noted in good position within the tibia. Midshaft fracture s of the tibia and fibula are stable. CONCLUSION: Intramedullary anastasia and fixation screws are in good position within the tibia status post revision. Electronically signed by: Frank Robbins MD 04/02/2018 12:48 PM EDT
[2018-04-02] MEDS: Calcium/Vitamin D 250/125 MG Tablet PO SCH ×2 (13:00→18:45)
[2018-04-02] MEDS: Vancomycin Inj 1,000 MG in Sodium Chlor 0.9% Inj 250 ML IV.SIG SCH (19:37)
[2018-04-02] MEDS: Senna/Docusate Sodium 8.6/50 MG Tablet PO SCH (23:56)
[2018-04-03] MEDS: ceFAZolin 2 GM Premix Inj 2 GM/50 ML PIGGYBACK IV.SIG SCH ×2 (01:12→09:20)
[2018-04-03] MEDS: Morphine Inj 4 MG/ML Vial IV.PUSH PRN (05:53)
--- NOTE | 2018-04-03 06:57 | P.PNOP ---
Subjective Interval history: Doing well. Significant other at bedside. Pain controlled Physical Exam Vital signs: Vital Signs 04/02/18 09:36 04/02/18 09:45 04/02/18 10:00 Temperature 97.3 F L Pulse Rate 60 89 50 L Respiratory Rate 16 14 18 Blood Pressure 133/65 155/96 H 144/73 H Pulse Oximetry 100 96 100 04/02/18 10:15 04/02/18 10:30 04/02/18 12:00 Temperature 97.2 F L 97.4 F L Pulse Rate 64 50 L 54 L Respiratory Rate 15 16 14 Blood Pressure 147/75 H 157/78 H 155/75 H Pulse Oximetry 100 98 106 H 04/02/18 16:00 04/02/18 20:00 04/03/18 00:00 Temperature 97.6 F 97.9 F 97.8 F Pulse Rate 51 L 64 62 Respiratory Rate 16 20 20 Blood Pressure 141/66 H 161/67 H 169/72 H Pulse Oximetry 98 99 99 04/03/18 04:00 Temperature 98.7 F Pulse Rate 52 L Respiratory Rate 20 Blood Pressure 158/70 H Pulse Oximetry 99 Intake & Output 04/02/18 04/02/18 04/03/18 06:59 18:59 06:59 Intake Total 2550 / 2550 720 / 720 Output Total 250 / 250 Balance 2300 / 2300 720 / 720 Weight 80.9 kg 80.9 kg 80.931 kg Intake: IV 2350 / 2350 360 / 360 LR 1000 mL Inj 1,000 ML @ 80 2000 / 2000 mls/hr IV.CONT .[id number] [facility] Rx# :[id number] Vancomycin Inj 1,000 MG In NS 250 / 250 Inj 250 ML @ 250 mls/hr IV.SIG ACCOUNT SERVICES ANALYST [facility] Rx#:[id number] Vancomycin Inj 1,000 MG In NS 260 / 260 Inj 250 ML @ 260 mls/hr IV.SIG Q12H [facility] Rx#:[id number] Ancef 2 GM Premix Inj 2 gm In 100 / 100 100 / 100 50 ml @ 100 mls/hr IV.SIG Q8H [facility] Rx#:[id number] Oral 360 / 360 Anesthesia Amount 200 / 200 Output: Estimated Blood Loss 250 / 250 Other: # Voids 5 Date of Last Bowel Movement 04/01/18 04/01/18 Weight On Admission 80.9 kg Dressing dry. Sensation distally normal. Results - Labs CBC & Chem 7: 04/03/18 05:46 Microbiology 04/02/18 09:07 Wound - Leg Fungal Smear - Final No fungal elements seen 04/02/18 09:07 Tissue - Incision Fungal Smear - Final No fungal elements seen 04/02/18 09:07 Tissue - Incision Gram Stain - Final 04/02/18 09:07 Wound - Leg Gram Stain - Final - Imaging Impressions Tibia/Fibula X-Ray 04/02/18 00:00 CONCLUSION: Intramedullary anastasia and fixation screws are in good position within the tibia status post revision. Assessment and Plan - Problem List (1) Other fracture of shaft of right tibia, subsequent encounter for open fracture type I or II with nonunion Code(s): S82.291M - Other fracture of shaft of right tibia, subsequent encounter for open fracture type I or II with nonunion Status: Acute - Assessment and Plan Nonunion of right open proximal tibia with removal of hardware and irrigation debridement with iliac crest bone graft and infuse with intramedullary nail fixation POD 1 Toe-touch weightbearing right lower extremity Physical therapy for passive and active range of motion of knee and ankle Cultures obtained, negative so far. Lovenox Daily dressing changes beginning POD 2, patient will do at home Incentive spirometry SCDs and KATHERIN leonard Discharged home today
[2018-04-03 07:05] LABS: Hematocrit 33.6 % (39.0-51.0); Hemoglobin 11.8 gm/dL (13.0-17.0)
[2018-04-03] MEDS ORDERED: Enoxaparin Inj 40 MG/0.4 ML Syringe SQ SCH (09:00)
[2018-04-03 09:17] VITALS: BP 160/70; PULSE 48; RESP 17; TEMP 98.1; O2SAT 100
[2018-04-03] MEDS: Vancomycin Inj 1,000 MG in Sodium Chlor 0.9% Inj 250 ML IV.SIG SCH (09:19)
[2018-04-03] MEDS: Senna/Docusate Sodium 8.6/50 MG Tablet PO SCH (09:22)
[2018-04-03] MEDS: Calcium/Vitamin D 250/125 MG Tablet PO SCH (09:22)
== END 2018-04-03 13:06 | disposition home health service (06) ==
LOC: HSDC 05:35 → HSDI 05:35 → OBSVTOIN 09:04 → N06 10:57
PROVIDERS: ADMIT Orthopaedic Surgery Orthopaedic Trauma; ATTEND Orthopaedic Surgery Orthopaedic Trauma

== ENCOUNTER 2018-04-05 20:00 | Inpatient (IN) ==
[2018-04-05] MEDS ORDERED: Piperacil/Tazo 3.375 GM Premix 50 ML IV.SIG ONE (20:31)
[2018-04-05] MEDS ORDERED: Vancomycin Inj 1 GM/200 ML PIGGYBACK IV.SIG ONE (20:31)
[2018-04-05] MEDS ORDERED: Vancomycin Inj 1,000 MG in Sodium Chlor 0.9% Inj 250 ML IV.SIG ONE (20:45)
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
[2018-04-05] MEDS ORDERED: Morphine Inj 4 MG, Morphine Inj 2 MG IV.PUSH ONE ×2 (21:13)
[2018-04-05] MEDS ORDERED: Morphine Inj 4 MG/ML Vial IV.PUSH ONE (21:30)
[2018-04-05 22:32] LABS: Baso # (Auto) 0.1 th/mm3 (0.0-0.2); Baso % (Auto) 0.6 % (0.0-2.0); Eos # (Auto) 0.2 th/mm3 (0.0-0.4); Eos % (Auto) 1.8 % (0.0-4.0); Hematocrit 32.6 % (39.0-51.0); Hemoglobin 11.3 gm/dL (13.0-17.0); Lymph # (Auto) 2.6 th/mm3 (1.0-4.8); Lymph % (Auto) 26.4 % (9.0-44.0); Mean Corpuscular HGB Conc 34.7 % (32.0-36.0); Mean Corpuscular Hemoglobin 33.4 pg (27.0-34.0); Mean Corpuscular Volume 96.2 fL (80.0-100.0); Mean Platelet Volume 8.6 fL (7.0-11.0); Mono # (Auto) 0.5 th/mm3 (0.0-0.9); Mono % (Auto) 5.5 % (0.0-8.0); Neut # (Auto) 6.6 th/mm3 (1.8-7.7); Neut % (Auto) 65.7 % (16.0-70.0); Platelet Count 305 th/mm3 (150-450); Red Blood Count 3.39 mil/mm3 (4.50-5.90); Red Cell Distribution Width 13.7 % (11.6-17.2)
[2018-04-05 22:52] LABS: Anion Gap 5 meq/L (5-15); Blood Urea Nitrogen 9 mg/dL (7-18); Calcium 8.5 mg/dL (8.5-10.1); Carbon Dioxide 36.3 meq/L (21.0-32.0); Chloride 101 meq/L (98-107); Glomerular Filtration Rate Greater Than 89 mL/min (>89); Glucose,Random 84 mg/dL (74-106); Potassium 3.5 meq/L (3.5-5.1); Sodium 142 meq/L (136-145)
[2018-04-06] MEDS ORDERED: Sodium Chloride 0.9% 2 ML Flush PRN IV.FLUSH (06:33)
[2018-04-06] MEDS: Morphine Sulfate Inj 2 MG/ML Vial IV.PUSH PRN ×2 (06:37→10:09)
--- NOTE | 2018-04-06 07:59 | P.HPOP ---
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 Mukherjee. He underwent intramedullary nailing of his right tibia back in August. However, it progressed to a nonunion of the fracture. Decision was made to move forward with removal of the hardware with revision IM nailing of his right tibia. This was done last Thursday. Intraoperative cultures were taken at that time. On Thursday, cultures returned back as positive for staph aureus. The patient was contacted at his home and instructed to return to the emergency department to be admitted for IV antibiotics. Infectious disease was consulted. The patient is currently resting comfortably and states that his hip is causing him more pain than his actual leg. Overall he seems to be progressing well. He denies any fevers chills or shortness of breath. Denies any loss of consciousness. Denies any pain anywhere else in the right leg. Denies any numbness or tingling. - Diagnosis (1) Other fracture of shaft of right tibia, subsequent encounter for open fracture type I or II with nonunion (2) Osteomyelitis Inpatient Certification: I certify that the inpatient services were ordered in accordance with Medicare regulations governing the order. This includes certification that hospital inpatient services are reasonable and necessary and in the case of services not specified as inpatient-only under 42 CFR 419.22(n), that they are appropriately provided as inpatient services in accordance to with the 2-midnight benchmark under 43 CFR 412.3(e) Estimated Total Length of Stay (Days): 3 Plans for Post Hospital Care: Home Review of Systems Patient denies any fevers, weight loss, headache, visual changes, hearing loss, chest pain, palpitations, shortness of breath, nausea, vomiting, urinary changes , neck or back pain, skin rashes, weakness or numbness of extremities, or depression. All other systems reviewed negative except as stated in HPI PMFSH - History History Provided By: Patient - Medical / Surgical Hx Neg / Unobtainable Medical Problems Denied: Yes - Medical History Medical History: Medical History (Last Reviewed 04/06/18 @ 07:53 by LEIA To) Patient denies medical problems History of tibial fracture - Surgical History Surgical History: Surgical History (Last Reviewed 04/06/18 @ 07:54 by LEIA To) History of open reduction and internal fixation (ORIF) procedure - Social History I have reviewed the patient's Social History: Yes - Tobacco History Second Hand Smoke Exposure: No Tobacco Use In Past 30 Days: No Smoking Status: Former smoker Tobacco Type: Cigarettes - Alcohol History How Often Do You Have a Drink Containing Alcohol: Monthly or less - Substance Use History Substance History: No History of Abuse - Travel History Recent Travel in the [place] Within the Last 8 Weeks: No Recent Travel Out of the Country Within the Last 8 Weeks: No - Immunization History Tetanus Immunization: <5 Years Medications and Allergies Active Medications: Active Medications Hydrocodone Bitart/Acetaminophen ([place] 7.5/325) 1 tab PO Q4H PRN PRN Reason: pain 3-6 Hydrocodone Bitart/Acetaminophen ([place] 10/325) 1 tab PO Q4H PRN PRN Reason: pain 7-10 Last Admin: 04/06/18 07:40 Dose: 1 tab Morphine Sulfate (Morphine Inj) 2 mg IV.PUSH Q3H PRN PRN Reason: BREAKTHROUGH PAIN Last Admin: 04/06/18 06:37 Dose: 2 mg Sodium Chloride (Ns Flush) 2 ml IV.FLUSH BID [place] Sodium Chloride (Ns Flush) 2 ml IV.FLUSH PRN PRN PRN Reason: FLUSH AFTER USING IV ACCESS Allergies Allergy/AdvReac Type Severity Reaction Status Date / Time No Known Allergies Allergy Verified 04/01/18 09:54 Exam Vital signs: Vital Signs 04/05/18 20:08 04/06/18 00:00 04/06/18 04:00 Temperature 98.5 F 98.6 F 98.7 F Pulse Rate 71 68 60 Respiratory Rate 18 18 18 Blood Pressure 153/85 H 126/58 L 123/66 Pulse Oximetry 100 99 98 Intake & Output 04/05/18 04/06/18 04/06/18 18:59 06:59 18:59 Intake Total 300 / 300 Output Total 300 / 300 Balance 0 / 0 Weight 83.8 kg Intake: IV 300 / 300 Zosyn 3.375 GM Premix 50 ML @ 50 / 50 100 mls/hr IV.SIG ONCE ONE Rx#: [id number] Vancomycin Inj 1,000 MG In NS 250 / 250 Inj 250 ML @ 250 mls/hr IV.SIG ONCE ONE Rx#:[id number] Output: Urine 300 / 300 Other: Weight On Admission 84.2 kg Narrative: General: Well-developed and well-nourished. Resting comfortably in no acute distress Head: Normocephalic and atraumatic Ears: Hearing is intact bilaterally Eyes: Extraocular motion is intact. Pupils are equal round and reactive to light. Neck: No evidence of lymphadenopathy Cranial nerve: II-XII grossly intact Lungs: No use of accessory muscles or breathing and no audible wheezes at bedside Heart: No grade 4 murmur present at bedside Abdomen: Soft and nontender. Musculoskeletal: RLE: Dressings are clean and dry of the tibia. He has good motion of the knee and ankle with full sensation distally. His right hip incision is uncovered. However, the incision is healing well with no signs of erythema or drainage. LLE: Full movement of the hip, knee, ankle and toes with no pain. Full sensation distally - Constitutional no acute distress Results - Labs Result Diagrams: 04/05/18 21:38 04/05/18 21:38 Labs: Laboratory Results - last 24 hr 04/05/18 04/05/18 21:38 21:38 WBC 10.0 RBC 3.39 L Hgb 11.3 L Hct 32.6 L MCV 96.2 MCH 33.4 MCHC 34.7 RDW 13.7 Plt Count 305 MPV 8.6 Neut % (Auto) 65.7 Lymph % (Auto) 26.4 [place] % (Auto) 5.5 Eos % (Auto) 1.8 Baso % (Auto) 0.6 Neut # (Auto) 6.6 Lymph # (Auto) 2.6 [place] # (Auto) 0.5 Eos # (Auto) 0.2 Baso # (Auto) 0.1 WBC Differential . Differential Comment Auto diff final Sodium 142 Potassium 3.5 Chloride 101 Carbon Dioxide 36.3 H Anion Gap 5 BUN 9 Creatinine 0.75 Estimated GFR Greater than 89 Random Glucose 84 Calcium 8.5 Caprini VTE Risk Assessment Caprini VTE Risk Assessment: No/Low Risk (score <= 1) Caprini Risk Assessment Model: Point Value = 1 Point Value = 2 Point Value = 3 Point Value = 5 Age 41-60 Minor surgery BMI > 25 kg/m2 Swollen legs Varicose veins or History of unexplained or recurrent spontaneous Oral contraceptives or hormone replacement Sepsis (< 1 month) Serious lung disease, including pneumonia (< 1 month) Abnormal pulmonary function Acute myocardial infarction Congestive heart failure (< 1 month) History of inflammatory bowel disease Medical patient at bed rest Age 61-74 Arthroscopic surgery Major open surgery (> 45 min) Laparoscopic surgery (> 45 min) Malignancy Confined to bed (> 72 hours) Immobilizing plaster cast Central venous access Age >= 75 History of VTE Family history of VTE Factor V Leiden Prothrombin [id number] Lupus anticoagulant Anticardiolipin antibodies Elevated serum homocysteine Heparin-induced thrombocytopenia Other congenital or acquired thrombophilia Stroke (< 1 month) Elective arthroplasty Hip, pelvis, or leg fracture Acute spinal cord injury (< 1 month) Prophylaxis Regimen: Total Risk Factor Score Risk Level Prophylaxis Regimen 0-1 Low Early ambulation 2 Moderate Order ONE of the following: *Sequential Compression Device (SCD) *Heparin 5000 units SQ BID 3-4 Higher Order ONE of the following medications: *Heparin 5000 units SQ TID *Enoxaparin/Lovenox 40 mg SQ daily (WT < 150 kg, CrCl > 30 mL/min) *Enoxaparin/Lovenox 30 mg SQ daily (WT < 150 kg, CrCl > 10-29 mL/min) *Enoxaparin/Lovenox 30 mg SQ BID (WT < 150 kg, CrCl > 30 mL/min) AND/OR *Sequential Compression Device (SCD) 5 or more Highest Order ONE of the following medications: *Heparin 5000 units SQ TID (Preferred with Epidurals) *Enoxaparin/Lovenox 40 mg SQ daily (WT < 150 kg, CrCl > 30 mL/min) *Enoxaparin/Lovenox 30 mg SQ daily (WT < 150 kg, CrCl > 10-29 mL/min) *Enoxaparin/Lovenox 30 mg SQ BID (WT < 150 kg, CrCl > 30 mL/min) AND *Sequential Compression Device (SCD) Assessment and Plan - Problem List (1) Other fracture of shaft of right tibia, subsequent encounter for open fracture type I or II with nonunion Code(s): S82.291M - Other fracture of shaft of right tibia, subsequent encounter for open fracture type I or II with nonunion Status: Acute (2) Osteomyelitis Code(s): M86.9 - Osteomyelitis, unspecified Status: Acute - Assessment and Plan 1) Right Tibial Shaft Fracture s/p JULIO with revision IMN and iliac crest bone grafting - POD 4 2) s/p right tibia infection Infectious diseases been consulted. The patient will remain nonweightbearing on the right leg. He will continue daily dressing changes with Xeroform, 4 x 4' s and [place] wrap. He will also have daily dressing changes to the right hip with Xeroform and a [place] dressing. He will require 6-8 weeks of IV antibiotics and a PICC line placement. Will defer to infectious disease team for recommendations and antibiotics. Once the PICC line and antibiotics have been arranged, he will be cleared for discharge and follow-up with Dr. Mukherjee on an outpatient basis in 2 weeks.
[2018-04-06] MEDS: Sodium Chloride 0.9% 2 ML Flush BID IV.FLUSH SCH ×2 (10:08→23:01)
[2018-04-06] MEDS ORDERED: Vancomycin Consult Pharmacy OTHER PRN (10:55)
--- NOTE | 2018-04-06 11:11 | P.CONID ---
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 Records reviewed. Patient is a 23-year-old white male, sustained an open fracture of the right tib -fib last August 2017. He initially had debridement of his wound, and placement of an external fixator. About 3 days after that in original surgery he then underwent IM nail fixation of his fracture. He apparently did well after the surgery, and all his incisions healed. He thinks he was on some antibiotics after he was discharged from that hospitalization which he completed. He was able to ambulate and put weight on his right lower extremity up until about a month ago when he started experiencing significant pain in his right lower extremity. He underwent evaluation, and was diagnosed to have nonunion of the fracture. He underwent surgery on April 02, and had removal of the hardware with revision of his IM nail fixation and he had a bone graft done. Intraoperative cultures were taken, and it came back with staph epidermidis. The patient was called back in, and was told to go to the hospital for further treatment. Patient denies any fever chills or sweats. He has not been treated for any kind of infection since after he had his original accident. Patient has been afebrile. His WBC is normal. Infectious disease consultation has been requested to assist with evaluation and treatment. Review of Systems Constitutional: Denies chills, Denies fever(s), Denies night sweats Eyes: Denies discharge, Denies dry eyes, Denies irritation, Denies itchy eyes Ears, Nose, Mouth, and Throat: Denies difficulty swallowing, Denies dry mouth, Denies facial pain, Denies headache(s), Denies pain with swallowing, Denies sore throat Cardiovascular: Denies chest pain, Denies shortness of breath Respiratory: Denies chest congestion, Denies cough, Denies shortness of breath Gastrointestinal: Denies abdominal pain, Denies loose stools, Denies nausea, Denies pain with swallowing, Denies vomiting Genitourinary: Denies difficulty urinating, Denies painful urination Musculoskeletal: Reports joint pain, Denies muscle weakness Skin/Breast: Denies dry skin, Denies rash Neurologic: Denies headache(s) PMFSH - History History Provided By: Patient - Medical / Surgical Hx Neg / Unobtainable Medical Problems Denied: Yes - Medical History Medical History: Medical History (Last Reviewed 04/06/18 @ 11:00 by Lanie Mejia MD) Patient denies medical problems History of tibial fracture - Surgical History Surgical History: Surgical History (Last Reviewed 04/06/18 @ 11:00 by Lanie Mejia MD) History of open reduction and internal fixation (ORIF) procedure - Tobacco History Second Hand Smoke Exposure: No Tobacco Use In Past 30 Days: No Smoking Status: Former smoker Tobacco Type: Cigarettes - Alcohol History How Often Do You Have a Drink Containing Alcohol: Monthly or less - Substance Use History Substance History: No History of Abuse - Travel History Recent Travel in the [facility] Within the Last 8 Weeks: No Recent Travel Out of the Country Within the Last 8 Weeks: No - Immunization History Tetanus Immunization: <5 Years Medications and Allergies Active Medications: Active Medications Hydrocodone Bitart/Acetaminophen ([place] 7.5/325) 1 tab PO Q4H PRN PRN Reason: pain 3-6 Hydrocodone Bitart/Acetaminophen ([place] 10/325) 1 tab PO Q4H PRN PRN Reason: pain 7-10 Last Admin: 04/06/18 07:40 Dose: 1 tab Vancomycin HCl 1,750 mg/ (Sodium Chloride) 517.5 mls @ 250 mls/hr IV.SIG ONCE ONE Stop: 04/06/18 12:59 Morphine Sulfate (Morphine Inj) 2 mg IV.PUSH Q3H PRN PRN Reason: BREAKTHROUGH PAIN Last Admin: 04/06/18 10:09 Dose: 2 mg Pharmacy Profile Note (Vancomycin Consult Pharmacy) 1 each OTHER UNSCH PRN PRN Reason: Pharmacy to dose Sodium Chloride (Ns Flush) 2 ml IV.FLUSH BID [place] Last Admin: 04/06/18 10:08 Dose: 2 ml Sodium Chloride (Ns Flush) 2 ml IV.FLUSH PRN PRN PRN Reason: FLUSH AFTER USING IV ACCESS Allergies Allergy/AdvReac Type Severity Reaction Status Date / Time No Known Allergies Allergy Verified 04/01/18 09:54 Exam Vital signs: Vital Signs 04/05/18 20:08 04/06/18 00:00 04/06/18 04:00 Temperature 98.5 F 98.6 F 98.7 F Pulse Rate 71 68 60 Respiratory Rate 18 18 18 Blood Pressure 153/85 H 126/58 L 123/66 Pulse Oximetry 100 99 98 04/06/18 08:00 Temperature 98.3 F Pulse Rate 62 Respiratory Rate 18 Blood Pressure 158/68 H Pulse Oximetry 92 L Intake & Output 04/05/18 04/06/18 04/06/18 18:59 06:59 18:59 Intake Total 300 / 300 Output Total 300 / 300 Balance 0 / 0 Weight 83.8 kg Intake: IV 300 / 300 Zosyn 3.375 GM Premix 50 ML @ 50 / 50 100 mls/hr IV.SIG ONCE ONE Rx#: [id number] Vancomycin Inj 1,000 MG In NS 250 / 250 Inj 250 ML @ 250 mls/hr IV.SIG ONCE ONE Rx#:[id number] Output: Urine 300 / 300 Other: Weight On Admission 84.2 kg Narrative: Physical Examination GENERAL: Patient is a well-nourished, well-developed male, awake and alert, not in respiratory distress. SKIN: Warm and dry. No generalized rash, no ecchymoses and no evidence of embolic lesions. HEAD: Atraumatic. Normocephalic. No temporal wasting, or tenderness. EYES: [place] conjunctiva. No petechia or hemorrhage. Pupils equal, round and reactive to light. Extraocular movements full and intact. No scleral icterus. No injection or drainage. EARS, NOSE AND THROAT: Nose without bleeding or purulent nasal discharge. No sinus tenderness. Mucous membranes pink and moist. No oral lesions noted. No exudate. No oral thrush. NECK: Trachea midline. Supple and not tender, no meningeal signs CARDIOVASCULAR: Regular rate and rhythm. No murmurs, rubs or gallops heard RESPIRATORY: Clear to auscultation. Breath sounds equal bilaterally. No rales , wheezing or rhonchi ABDOMEN: Soft, non-tender, nondistended. Bowel sounds present and normoactive. No guarding. No rebound. No organomegaly. EXTREMITIES: No clubbing, cyanosis. RLE - incisions are dry and no redness noted. No calf tenderness. Well perfused and warm. NEUROLOGICAL: Awake and alert. Cranial nerves grossly intact. Motor grossly within normal limits. PSYCHIATRIC: Normal affect, calm and cooperative. LINE: No evidence of infection Results - Labs CBC & Chem 7: 04/05/18 21:38 04/05/18 21:38 Labs: Laboratory Results - last 24 hr 04/05/18 04/05/18 21:38 21:38 WBC 10.0 RBC 3.39 L Hgb 11.3 L Hct 32.6 L MCV 96.2 MCH 33.4 MCHC 34.7 RDW 13.7 Plt Count 305 MPV 8.6 Neut % (Auto) 65.7 Lymph % (Auto) 26.4 [place] % (Auto) 5.5 Eos % (Auto) 1.8 Baso % (Auto) 0.6 Neut # (Auto) 6.6 Lymph # (Auto) 2.6 [place] # (Auto) 0.5 Eos # (Auto) 0.2 Baso # (Auto) 0.1 WBC Differential . Differential Comment Auto diff final Sodium 142 Potassium 3.5 Chloride 101 Carbon Dioxide 36.3 H Anion Gap 5 BUN 9 Creatinine 0.75 Estimated GFR Greater than 89 Random Glucose 84 Calcium 8.5 Assessment and Plan - Plan Impression Infection R tibia, previous open fracture - S/O IM nail fixation August - had revision and IM nail fixation 04/02 - ibtraop C/S with Staph epidermidis Recommendation Get baseline LFT, ESR and CRP IV vanco Add Rifampin for synergy since he has hardware Rx aggressively with ABx and hope to heal fracture - if infection recurs, then will need hardware removal Explained this to the patient PICC Will have him follow-up with Dr harper after he gets D/C Minimum 6 weeks IV Abx I will follow along with you Thank you for this consultation
[2018-04-06 12:47] LABS: Albumin 3.5 g/dL (3.4-5.0); C-Reactive Protein 1.04 mg/dL (0.00-0.30)
[2018-04-06 12:49] LABS: Total Protein 7.1 g/dL (6.4-8.2)
[2018-04-06] MEDS ORDERED: Vancomycin Inj 1,750 MG in Sodium Chlor 0.9% Inj 500 ML IV.SIG ONE (13:00)
[2018-04-06] MEDS: Vancomycin Inj 1,250 MG in Sodium Chlor 0.9% Inj 250 ML IV.SIG SCH (21:31)
[2018-04-07] MEDS: Morphine Sulfate Inj 2 MG/ML Vial IV.PUSH PRN ×2 (04:47→21:52)
[2018-04-07] MEDS: Vancomycin Inj 1,250 MG in Sodium Chlor 0.9% Inj 250 ML IV.SIG SCH ×2 (05:24→14:33)
[2018-04-07] MEDS: Sodium Chloride 0.9% 2 ML Flush BID IV.FLUSH SCH ×2 (08:25→21:54)
--- NOTE | 2018-04-07 08:41 | P.PNOP ---
Subjective Interval history: POD 5 s/p JULIO with ICBG and revision IMN right tibia s/p right tibia infection doing well. no changes. no new complaints. states awaiting picc line placement Physical Exam Vital signs: Vital Signs 04/06/18 12:00 04/06/18 16:00 04/06/18 20:00 Temperature 98.4 F 98.2 F 97.9 F Pulse Rate 55 L 55 L 63 Respiratory Rate 19 16 18 Blood Pressure 157/67 H 136/63 149/69 H Pulse Oximetry 98 99 99 04/07/18 00:00 04/07/18 04:00 Temperature 97.9 F 97.6 F Pulse Rate 60 59 L Respiratory Rate 18 18 Blood Pressure 157/72 H 163/71 H Pulse Oximetry 97 99 Intake & Output 04/06/18 04/07/18 04/07/18 18:59 06:59 18:59 Intake Total 1357.5 / 1357.5 525.0 / 525.0 Output Total 3300 / 3300 1250 / 1250 900 / 900 Balance -1942.5 / -1942.5 -725.0 / -725.0 -900 / -900 Weight 82.8 kg Intake: IV 517.5 / 517.5 525.0 / 525.0 Vancomycin Inj 1,250 MG In NS 525.0 / 525.0 Inj 250 ML @ 250 mls/hr IV.SIG Q8H [place] Rx#:[id number] Vancomycin Inj 1,750 MG In NS 517.5 / 517.5 Inj 500 ML @ 250 mls/hr IV.SIG ONCE ONE Rx#:[id number] Oral 840 / 840 Output: Urine 3300 / 3300 1250 / 1250 900 / 900 Other: Date of Last Bowel Movement 04/05/18 # Bowel Movements 0 1 Narrative: RLE: dressings clean and dry. intact. nvi Results - Labs CBC & Chem 7: 04/05/18 21:38 04/05/18 21:38 Laboratory Results - last 24 hr 04/06/18 04/06/18 12:10 12:10 ESR 32 H Total Bilirubin 0.3 Direct Bilirubin 0.1 Indirect Bilirubin 0.2 AST 118 H ALT 172 H Alkaline Phosphatase 130 H C-Reactive Protein 1.04 H Total Protein 7.1 Albumin 3.5 Microbiology 04/05/18 21:38 Blood - Peripheral Aerobic Blood Culture - Preliminary No growth in 1 day 04/05/18 21:38 Blood - Peripheral Anaerobic Blood Culture - Preliminary No growth in 1 day 04/05/18 21:45 Blood - Peripheral Aerobic Blood Culture - Preliminary No growth in 1 day 04/05/18 21:45 Blood - Peripheral Anaerobic Blood Culture - Preliminary No growth in 1 day Assessment and Plan - Problem List (1) Other fracture of shaft of right tibia, subsequent encounter for open fracture type I or II with nonunion Code(s): S82.291M - Other fracture of shaft of right tibia, subsequent encounter for open fracture type I or II with nonunion Status: Acute (2) Osteomyelitis Code(s): M86.9 - Osteomyelitis, unspecified Status: Acute - Assessment and Plan 1) Right Tibial Shaft Fracture s/p JULIO with revision IMN and iliac crest bone grafting - POD 5 2) s/p right tibia infection -NWB RLE -daily dressing changes -awaiting picc line placement -will be cleared for discharge home once picc line placed and Abx arranged -plan for DC tomorrow. need to reach out to [facility] to see when picc line will be placed
--- NOTE | 2018-04-07 11:12 | P.PNID ---
Subjective Remarks: Patient is a 23-year-old white male, sustained an open fracture of the right tib -fib last August 2017. He initially had debridement of his wound, and placement of an external fixator. About 3 days after that in original surgery he then underwent IM nail fixation of his fracture. He apparently did well after the surgery, and all his incisions healed. He thinks he was on some antibiotics after he was discharged from that hospitalization which he completed. He was able to ambulate and put weight on his right lower extremity up until about a month ago when he started experiencing significant pain in his right lower extremity. He underwent evaluation, and was diagnosed to have nonunion of the fracture. He underwent surgery on April 02, and had removal of the hardware with revision of his IM nail fixation and he had a bone graft done. Intraoperative cultures were taken, and it came back with staph epidermidis. The patient was called back in, and was told to go to the hospital for further treatment. Patient denies any fever chills or sweats. He has not been treated for any kind of infection since after he had his original accident. Patient has been afebrile. His WBC is normal. Infectious disease consultation has been requested to assist with evaluation and treatment. Notes reviewed No complaints Awaiting PICC No fever ESR 32 CRP 1.04 Antibiotics: Vancomycin Lines: PIV Past Medical History: Reviewed Allergies/Adverse Reactions: Allergies No Known Allergies Allergy (Verified 04/01/18 09:54) Objective Vital Signs 04/06/18 12:00 04/06/18 16:00 04/06/18 20:00 Temperature 98.4 F 98.2 F 97.9 F Pulse Rate 55 L 55 L 63 Respiratory Rate 19 16 18 Blood Pressure 157/67 H 136/63 149/69 H Pulse Oximetry 98 99 99 04/07/18 00:00 04/07/18 04:00 04/07/18 08:00 Temperature 97.9 F 97.6 F 97.4 F L Pulse Rate 60 59 L 57 L Respiratory Rate 18 18 14 Blood Pressure 157/72 H 163/71 H 130/65 Pulse Oximetry 97 99 97 Intake & Output 04/06/18 04/07/18 04/07/18 18:59 06:59 18:59 Intake Total 1357.5 / 1357.5 525.0 / 525.0 Output Total 3300 / 3300 1250 / 1250 900 / 900 Balance -1942.5 / -1942.5 -725.0 / -725.0 -900 / -900 Weight 82.8 kg Intake: IV 517.5 / 517.5 525.0 / 525.0 Vancomycin Inj 1,250 MG In NS 525.0 / 525.0 Inj 250 ML @ 250 mls/hr IV.SIG Q8H [facility] Rx#:[id number] Vancomycin Inj 1,750 MG In NS 517.5 / 517.5 Inj 500 ML @ 250 mls/hr IV.SIG ONCE ONE Rx#:[id number] Oral 840 / 840 Output: Urine 3300 / 3300 1250 / 1250 900 / 900 Other: Date of Last Bowel Movement 04/05/18 # Bowel Movements 0 1 04/05/18 21:38 Blood - Peripheral Aerobic Blood Culture - Preliminary No growth in 2 days 04/05/18 21:38 Blood - Peripheral Anaerobic Blood Culture - Preliminary No growth in 2 days 04/05/18 21:45 Blood - Peripheral Aerobic Blood Culture - Preliminary No growth in 2 days 04/05/18 21:45 Blood - Peripheral Anaerobic Blood Culture - Preliminary No growth in 2 days Lab - Hematology Results 04/05/18 04/06/18 21:38 12:10 WBC 10.0 RBC 3.39 L Hgb 11.3 L Hct 32.6 L MCV 96.2 MCH 33.4 MCHC 34.7 RDW 13.7 Plt Count 305 MPV 8.6 Neut % (Auto) 65.7 Lymph % (Auto) 26.4 Catron % (Auto) 5.5 Eos % (Auto) 1.8 Baso % (Auto) 0.6 Neut # (Auto) 6.6 Lymph # (Auto) 2.6 Catron # (Auto) 0.5 Eos # (Auto) 0.2 Baso # (Auto) 0.1 WBC Differential . Differential Comment Auto diff final ESR 32 H Lab - Chemistry Results 04/05/18 04/06/18 21:38 12:10 Sodium 142 Potassium 3.5 Chloride 101 Carbon Dioxide 36.3 H Anion Gap 5 BUN 9 Creatinine 0.75 Estimated GFR Greater than 89 Random Glucose 84 Calcium 8.5 Total Bilirubin 0.3 Direct Bilirubin 0.1 Indirect Bilirubin 0.2 AST 118 H ALT 172 H Alkaline Phosphatase 130 H C-Reactive Protein 1.04 H Total Protein 7.1 Albumin 3.5 Physical Exam: GENERAL: awake and alert, not in respiratory distress. SKIN: Cool and dry. No generalized rash, no ecchymoses and no evidence of embolic lesions. HEAD: Atraumatic. Normocephalic. No temporal wasting, or tenderness. EYES: Green conjunctiva. No petechia or hemorrhage. Pupils equal, round and reactive to light. Extraocular movements full and intact. No scleral icterus. No injection or drainage. EARS, NOSE AND THROAT: Nose without bleeding or purulent nasal discharge. No sinus tenderness. Mucous membranes pink and moist. No oral lesions noted. No exudate. No oral thrush. NECK: Trachea midline. Supple and not tender, no meningeal signs CARDIOVASCULAR: Regular rate and rhythm. No murmurs, rubs or gallops heard RESPIRATORY: Clear to auscultation. Breath sounds equal bilaterally. No rales , wheezing or rhonchi ABDOMEN: Soft, non-tender, nondistended. Bowel sounds present and normoactive. No guarding. No rebound. No organomegaly. EXTREMITIES: No clubbing, cyanosis. RLE - incisions are dry and no redness noted. No calf tenderness. Well perfused and warm. NEUROLOGICAL: Awake and alert. Cranial nerves grossly intact. Motor grossly within normal limits. PSYCHIATRIC: Normal affect, calm and cooperative. LINE: No evidence of infection Assessment and Plan - Plan Impression Infection R tibia, previous open fracture - S/O IM nail fixation August - had revision and IM nail fixation 04/02 - ibtraop C/S with Staph epidermidis Recommendation Continue IV vanco Continue Rifampin for synergy since he has hardware Rx aggressively with ABx and hope to heal fracture - if infection recurs, then will need hardware removal PICC Will have him follow-up with Dr harper after he gets D/C Minimum 6 weeks IV Abx
[2018-04-07] MEDS ORDERED: Pharmacy Ordered Lab Info OTHER ONE (13:45)
[2018-04-07] MEDS: Vancomycin Inj 1,750 MG in Sodium Chlor 0.9% Inj 500 ML IV.SIG SCH (21:54)
[2018-04-08] MEDS: Morphine Sulfate Inj 2 MG/ML Vial IV.PUSH PRN (00:22)
[2018-04-08] MEDS: Vancomycin Inj 1,750 MG in Sodium Chlor 0.9% Inj 500 ML IV.SIG SCH ×2 (05:38→13:55)
--- NOTE | 2018-04-08 06:46 | P.PNOP ---
Subjective Interval history: Rodriguez is awake and alert. No new complaints. Continues to have some hip pain from the iliac crest harvest site. Physical Exam Vital signs: Vital Signs 04/07/18 08:00 04/07/18 12:00 04/07/18 16:00 Temperature 97.4 F L 97.7 F 98.1 F Pulse Rate 57 L 52 L 58 L Respiratory Rate 14 18 14 Blood Pressure 130/65 170/83 H 136/81 Pulse Oximetry 97 100 100 04/07/18 20:00 04/08/18 00:00 04/08/18 04:00 Temperature 99.0 F 98.3 F 97.3 F L Pulse Rate 70 59 L 51 L Respiratory Rate 21 20 18 Blood Pressure 151/62 H 148/95 H 138/62 Pulse Oximetry 97 100 99 Intake & Output 04/07/18 04/07/18 04/08/18 06:59 18:59 06:59 Intake Total 525.0 / 525.0 3397.5 / 3397.5 Output Total 1250 / 1250 1750 / 1750 1800 / 1800 Balance -725.0 / -725.0 -1750 / -1750 1597.5 / 1597.5 Weight 82.8 kg 82.6 kg Intake: IV 525.0 / 525.0 1297.5 / 1297.5 Vancomycin Inj 1,250 MG In NS 525.0 / 525.0 Inj 250 ML @ 250 mls/hr IV.SIG Q8H [facility] Rx#:[id number] Vancomycin Inj 1,750 MG In NS 1035.0 / 1035.0 Inj 500 ML @ 250 mls/hr IV.SIG Q8H [facility] Rx#:[id number] Oral 2100 / 2100 Output: Urine 1250 / 1250 1750 / 1750 1800 / 1800 Other: Date of Last Bowel Movement 04/05/18 # Bowel Movements 1 Narrative: Rodriguez is awake and alert. He has clean dry dressings on his iliac crest and tibia surgical sites. Sensation intact in both feet. Calves are soft and nontender. Results - Labs CBC & Chem 7: 04/05/18 21:38 04/05/18 21:38 Laboratory Results - last 24 hr 04/07/18 14:30 Vancomycin Trough 7.9 Microbiology 04/05/18 21:38 Blood - Peripheral Aerobic Blood Culture - Preliminary No growth in 2 days 04/05/18 21:38 Blood - Peripheral Anaerobic Blood Culture - Preliminary No growth in 2 days 04/05/18 21:45 Blood - Peripheral Aerobic Blood Culture - Preliminary No growth in 2 days 04/05/18 21:45 Blood - Peripheral Anaerobic Blood Culture - Preliminary No growth in 2 days Assessment and Plan - Problem List (1) Other fracture of shaft of right tibia, subsequent encounter for open fracture type I or II with nonunion Code(s): S82.291M - Other fracture of shaft of right tibia, subsequent encounter for open fracture type I or II with nonunion Status: Acute (2) Osteomyelitis Code(s): M86.9 - Osteomyelitis, unspecified Status: Acute - Assessment and Plan 1) Right Tibial Shaft Fracture s/p JULIO with revision IMN and iliac crest bone grafting - POD 6 2) intraoperative cultures positive-- right tibia infection -NWB RLE -daily dressing changes -awaiting picc line placement -Patient is cleared for discharge home once picc line placed and Abx arranged -plan for DC today after Picc line and antibiotics arranged
--- NOTE | 2018-04-08 06:54 | P.DCO ---
- Physical Therapy Physical Therapy: Gait training, Safety evaluation Right Lower Extremity Weight Bearing: Non-weight bearing - Nursing Dressing changes: Daily dressing change, Marshall wrap, 4x4s, Xeroform Additional instructions: PICC line management - Certification Need for Home Health services: I have seen patient Rodriguez Guaman II on 04/08/18. My clinical findings support the need for the requested home health care services because: Need for Home Health Services: Limited mobility due to disease progression Homebound Certification: I certify that my clinical findings support that this patient is homebound because: Homebound Certification: Post-op weakness
--- NOTE | 2018-04-08 07:01 | P.DS ---
Date of admission: 04/05/18 20:39 Primary care physician: No Primary Care Physician Attending physician on discharge: Ryan Mukherjee Anticipated date of discharge: 04/08/18 Brief History from admission: Patient is 23-year-old white male who is previously known to Dr. Mukherjee. He underwent intramedullary nailing of his right tibia back in August. However, it progressed to a nonunion of the fracture. Decision was made to move forward with removal of the hardware with revision IM nailing of his right tibia. This was done last Thursday. Intraoperative cultures were taken at that time. On Thursday, cultures returned back as positive for staph aureus. The patient was contacted at his home and instructed to return to the emergency department to be admitted for IV antibiotics. Infectious disease was consulted. The patient is currently resting comfortably and states that his hip is causing him more pain than his actual leg. Overall he seems to be progressing well. He denies any fevers chills or shortness of breath. Denies any loss of consciousness. Denies any pain anywhere else in the right leg. Denies any numbness or tingling. DS: Diagnosis - Discharge Diagnosis (1) Other fracture of shaft of right tibia, subsequent encounter for open fracture type I or II with nonunion Status: Acute (2) Complicated wound infection Status: Acute (3) Osteomyelitis Status: Acute DS: Summary Hospital Course: Patient admitted to the emergency department to receive IV antibiotics and a PICC line placement. He had previously undergone surgery of the Thursday before. He was evaluated by the infectious disease team with a new cultures. The PICC line placement was scheduled. He tolerated it well and be fit for discharge home today. He will remain nonweightbearing the right leg and have daily dressing changes with 4 x 4's, and Marshall wrap. He will have home health care for PICC line management and dressing changes. Infectious disease team will manage his [id number] with him on an outpatient basis. He will follow- up at his regularly scheduled appointment in [address] Mukherjee or his PA - Time Spent with Patient Total time spent providing and/or coordinating discharge services: Less than 30 minutes - Quality: VTE Deep Vein Thrombosis/Pulmonary Embolism Present on Admission: No Exam Vital signs: Vital Signs 04/07/18 08:00 04/07/18 12:00 04/07/18 16:00 Temperature 97.4 F L 97.7 F 98.1 F Pulse Rate 57 L 52 L 58 L Respiratory Rate 14 18 14 Blood Pressure 130/65 170/83 H 136/81 Pulse Oximetry 97 100 100 04/07/18 20:00 04/08/18 00:00 04/08/18 04:00 Temperature 99.0 F 98.3 F 97.3 F L Pulse Rate 70 59 L 51 L Respiratory Rate 21 20 18 Blood Pressure 151/62 H 148/95 H 138/62 Pulse Oximetry 97 100 99 Intake & Output 04/07/18 04/07/18 04/08/18 06:59 18:59 06:59 Intake Total 525.0 / 525.0 3397.5 / 3397.5 Output Total 1250 / 1250 1750 / 1750 1800 / 1800 Balance -725.0 / -725.0 -1750 / -1750 1597.5 / 1597.5 Weight 82.8 kg 82.6 kg Intake: IV 525.0 / 525.0 1297.5 / 1297.5 Vancomycin Inj 1,250 MG In NS 525.0 / 525.0 Inj 250 ML @ 250 mls/hr IV.SIG Q8H [facility] Rx#:[id number] Vancomycin Inj 1,750 MG In NS 1035.0 / 1035.0 Inj 500 ML @ 250 mls/hr IV.SIG Q8H [facility] Rx#:[id number] Oral 2100 / 2100 Output: Urine 1250 / 1250 1750 / 1750 1800 / 1800 Other: Date of Last Bowel Movement 04/05/18 # Bowel Movements 1 Narrative: Right leg: Dressings are clean and dry. Intact. Full sensation distally compartments are soft. Results Procedures completed during hospitalization: PICC line placement Labs on day of discharge: Labs from last 24 hours 04/07/18 14:30 Vancomycin Trough 7.9 Preliminary micro results at discharge 04/05/18 21:38 Aerobic Blood Culture - Preliminary Blood - Peripheral No growth in 2 days Anaerobic Blood Culture - Preliminary No growth in 2 days 04/05/18 21:45 Aerobic Blood Culture - Preliminary Blood - Peripheral No growth in 2 days Anaerobic Blood Culture - Preliminary No growth in 2 days Discharge Plan - Discharge Disposition Patient Disposition: /Home Health Service - Discharge Condition Condition: Good - Discharge Order Discharge Orders: Discharge Order (Routine); Ordered 04/08/18 Ordered By: Usman Howell - Physicians Team Primary Care Provider: Primary Care Martha,Bel Attending Provider: Ryan Mukherjee Other Providers: Lanie Mejia MD ; Abigail Quintero,Agency
[2018-04-08 07:52] LABS: Glomerular Filtration Rate Greater Than 89 mL/min (>89)
[2018-04-08] MEDS: Sodium Chloride 0.9% 2 ML Flush BID IV.FLUSH SCH (08:28)
--- NOTE | 2018-04-08 12:51 | P.PNID ---
Subjective Remarks: Patient is a 23-year-old white male, sustained an open fracture of the right tib -fib last August 2017. He initially had debridement of his wound, and placement of an external fixator. About 3 days after that in original surgery he then underwent IM nail fixation of his fracture. He apparently did well after the surgery, and all his incisions healed. He thinks he was on some antibiotics after he was discharged from that hospitalization which he completed. He was able to ambulate and put weight on his right lower extremity up until about a month ago when he started experiencing significant pain in his right lower extremity. He underwent evaluation, and was diagnosed to have nonunion of the fracture. He underwent surgery on April 02, and had removal of the hardware with revision of his IM nail fixation and he had a bone graft done. Intraoperative cultures were taken, and it came back with staph epidermidis. The patient was called back in, and was told to go to the hospital for further treatment. Patient denies any fever chills or sweats. He has not been treated for any kind of infection since after he had his original accident. Patient has been afebrile. His WBC is normal. Infectious disease consultation has been requested to assist with evaluation and treatment. Notes reviewed No complaints PICC in place No complaints No fever ESR 32 CRP 1.04 Antibiotics: Vancomycin Rifampin Lines: PIV Past Medical History: Reviewed Allergies/Adverse Reactions: Allergies No Known Allergies Allergy (Verified 04/01/18 09:54) Objective Vital Signs 04/07/18 16:00 04/07/18 20:00 04/08/18 00:00 Temperature 98.1 F 99.0 F 98.3 F Pulse Rate 58 L 70 59 L Respiratory Rate 14 21 20 Blood Pressure 136/81 151/62 H 148/95 H Pulse Oximetry 100 97 100 04/08/18 04:00 04/08/18 08:00 Temperature 97.3 F L 97.8 F Pulse Rate 51 L 63 Respiratory Rate 18 23 Blood Pressure 138/62 128/74 Pulse Oximetry 99 98 Intake & Output 04/07/18 04/08/18 04/08/18 18:59 06:59 18:59 Intake Total 3397.5 / 3397.5 Output Total 1750 / 1750 1800 / 1800 Balance -1750 / -1750 1597.5 / 1597.5 Weight 82.6 kg Intake: IV 1297.5 / 1297.5 Vancomycin Inj 1,750 MG In NS 1035.0 / 1035.0 Inj 500 ML @ 250 mls/hr IV.SIG Q8H [facility] Rx#:[id number] Oral 2100 / 2100 Output: Urine 1750 / 1750 1800 / 1800 04/05/18 21:38 Blood - Peripheral Aerobic Blood Culture - Preliminary No growth in 3 days 04/05/18 21:38 Blood - Peripheral Anaerobic Blood Culture - Preliminary No growth in 3 days 04/05/18 21:45 Blood - Peripheral Aerobic Blood Culture - Preliminary No growth in 3 days 04/05/18 21:45 Blood - Peripheral Anaerobic Blood Culture - Preliminary No growth in 3 days Lab - Chemistry Results 04/08/18 06:52 Creatinine 0.79 Estimated GFR Greater than 89 Physical Exam: GENERAL: awake and alert, not in respiratory distress. SKIN: Cool and dry. No generalized rash, no ecchymoses and no evidence of embolic lesions. HEAD: Atraumatic. Normocephalic. No temporal wasting, or tenderness. EYES: [place] conjunctiva. No petechia or hemorrhage. Pupils equal, round and reactive to light. Extraocular movements full and intact. No scleral icterus. No injection or drainage. EARS, NOSE AND THROAT: Nose without bleeding or purulent nasal discharge. No sinus tenderness. Mucous membranes pink and moist. No oral lesions noted. No exudate. No oral thrush. NECK: Trachea midline. Supple and not tender, no meningeal signs CARDIOVASCULAR: Regular rate and rhythm. No murmurs, rubs or gallops heard RESPIRATORY: Clear to auscultation. Breath sounds equal bilaterally. No rales , wheezing or rhonchi ABDOMEN: Soft, non-tender, nondistended. Bowel sounds present and normoactive. No guarding. No rebound. No organomegaly. EXTREMITIES: No clubbing, cyanosis. RLE - incisions are dry and no redness noted. No calf tenderness. Well perfused and warm. NEUROLOGICAL: Awake and alert. Cranial nerves grossly intact. Motor grossly within normal limits. PSYCHIATRIC: Normal affect, calm and cooperative. LINE: No evidence of infection Assessment and Plan - Plan Impression Infection R tibia, previous open fracture - S/O IM nail fixation August - had revision and IM nail fixation 04/02 - ibtraop C/S with Staph epidermidis Recommendation Continue IV vanco for now Continue Rifampin for synergy since he has hardware CM checking if patient will be covered if Cubicin used - this is once a day; vs Vanco q8h, and he may need q6H Rx aggressively with ABx and hope to heal fracture - if infection recurs, then will need hardware removal PICC Will have him follow-up with Dr harper after he gets D/C Minimum 6 weeks IV Abx
[2018-04-08 12:52] VITALS: RESP 22; O2SAT 100
[2018-04-08] MEDS ORDERED: Heparin Central Flush 100 UNIT/ML 5 ML Vial IV.FLUSH PRN (13:35)
[2018-04-08] MEDS ORDERED: Heparin Central Flush 100 UNIT/ML 5 ML Vial IV.FLUSH SCH (13:45)
--- NOTE | 2018-04-08 16:24 | P.DCO ---
Post Hospital Infusion Therapy - Infusion Therapy Location of Infusion Therapy: Home Health Care IV Infusion Order - Patient Information Patient Weight: 82.6 kg - Diagnosis (1) Osteomyelitis Code(s): M86.9 - Osteomyelitis, unspecified - Administer Medication Daptomycin Additional Dosing Instructions: Daptomycin 650 mg IV daily Stop Treatment: 05/19/18 - Additional Information Venous Access: PICC Line Additional Instructions: [x] Peripheral flush and dressing changes per protocol [x] Implanted port and central line producer: * Implanted port: 10 ml Normal Saline followed by 5 ml Heparin 100 units/ml Heparin flush after each use and monthly to maintain. [] May leave port accessed during therapy. [] May leave peripheral site accessed for duration of therapy. [x] If patient has SOB or respiratory distress, check oxygen saturation. If less than 90% or clinical signs of respiratory distress, administer oxygen at 2 L/min. via nasal cannula and notify physician. [x] Anaphylaxis/Reaction orders: * Stop infusion. * Keep IV line open with saline flush. * Notify physician. * Monitor vital signs every 15 minutes until symptoms resolve. * Check Oxygen saturation; Oxygen at 2 L/min. via nasal cannula if less than 90% or clinical signs of respiratory distress. * Administer diphenhydramine (Benadryl) 25 mg IV STAT, (unless patient has received as pre-med). May repeat once, if necessary. * Solu-Cortef 250 mg IVP over 30-60 seconds, use 100 mg vials for each dissolution. * Epinephrine (1mg/1 ml) 0.3 mg subcutaneously or IVP now with any signs of respiratory distress. * Check with physician for new additional pre-med orders if patient is re- challenged or re-treated. [x] May remove PICC line when treatment complete. [x] If the patient is admitted to the hospital, the ED, or transferred via [facility] , complete transfer form including medication reconciliation order sheet. Weekly Labs: CBC w/diff, Creatinine, LFTs (Hepatic Function Test) (labs every Thursday - copy to and Dr Graham), Serum CK Levels (Labs every Thursday - copy to and Dr Graham) Additional Information: Please have patient follow-up with Dr Graham in 3-4 weeks - Patient Information Allergies No Known Allergies Allergy (Verified 04/01/18 09:54)
[2018-04-08 16:37] VITALS: BP 134/82; PULSE 59; TEMP 97.9
[2018-04-08] MEDS ORDERED: DAPTOmycin Inj 650 MG in Sodium Chlor 0.9% Inj 100 ML IV.SIG SCH (18:00)
[2018-04-09] MEDS ORDERED: Pharmacy Ordered Lab Info OTHER ONE (05:45)
== END 2018-04-08 19:19 | disposition home health service (06) ==
LOC: NEPC 20:00 → NEDA 20:39 → N05 22:05
PROVIDERS: ADMIT Orthopaedic Surgery Orthopaedic Trauma; ATTEND Orthopaedic Surgery Orthopaedic Trauma

== ENCOUNTER 2018-04-29 18:26 | Inpatient (IN) ==
[2018-04-29] MEDS ORDERED: Morphine Sulfate Inj 8 MG/ML Vial IV.PUSH ONE (22:37)
--- NOTE | 2018-04-29 23:01 | ED ---
HPI General Chief complaint: Wound/Laceration Stated complaint: knee pain Time Seen by Provider: 04/29/18 22:25 Source: patient and family Mode of arrival: ambulatory Limitations: no limitations History of Present Illness HPI narrative: 23-year-old male the presents to the ED for evaluation of significant pain to his rectum. The patient has had this for about a week now. Patient is now getting better. Patient he thought it was a hemorrhoid but he continues to get worse and worse. Patient pain is mostly to the right cheek. Very sensitive to touch and with having bowel movements. He chronically takes Lortab for osteomyelitis that he has to his right leg surgery. Patient is currently getting IV antibiotics once a day. Patient has not had any discharge but he noted today that he has been having some chills as well as triage she was found to have a slight temperature. He denies any nausea vomiting. No trauma to the area. Patient is having the accident because the injury to his right leg around August he has been noted that he has been straining more than usual he believed that this was the cause of the possibly because of the hemorrhoid was never had anything like this before. He states that he is tried everything [id number] and because of this not getting better he seek evaluation today. No urinary bowel movement issues. No other medical issues. Related Data Previous Rx's Medication Instructions Recorded hydrocodone-acetaminophen [[place]] 1 tab PO Q4H #40 tab 04/02/18 rivaroxaban [Xarelto] 10 mg PO DAILY #14 tab 04/03/18 Allergies Allergy/AdvReac Type Severity Reaction Status Date / Time No Known Allergies Allergy Verified 04/01/18 09:54 Review of Systems ROS: all other systems reviewed are negative [facility] Medical History Medical History Osteomyelitis (Acute) History of tibial fracture (Acute) Patient denies medical problems (Acute) Surgical History Surgical History History of open reduction and internal fixation (ORIF) procedure (Acute) Social History Social History Substance History: Active Abuse Second Hand Smoke Exposure: No Smoking Status: Former smoker Tobacco Type: Cigarettes How Often Do You Have a Drink Containing Alcohol: Monthly or less Recent Travel in [facility] within the Last 8 Weeks: No Recent Out of Country Travel within the Last 8 Weeks: No Substance Abuse Detail Marijuana: Substance Use Status: Active Route Used Substance Abuse: Inhalation Reason for Use: Calm Down Immunization History Tetanus Immunization: <5 Years Exam Narrative Exam Narrative: GENERAL: Well appearing SKIN: Focused skin assessment warm/dry. HEAD: Atraumatic. Normocephalic. EYES: Pupils equal and round. No scleral icterus. No injection or drainage. ENT: No nasal bleeding or discharge. Mucous membranes pink and moist. Tongue is midline. No uvula deviation. NECK: Trachea midline. No JVD. CARDIOVASCULAR: Regular rate and rhythm. No murmur appreciated. RESPIRATORY: No accessory muscle use. Clear to auscultation. Breath sounds equal bilaterally. GASTROINTESTINAL: Abdomen soft, non-tender, nondistended. Hepatic and splenic margins not palpable. Rectal exam done with female nurse present at all times. Patient does not appear to have any sign of hemorrhoid that I can see. Patient is extremely tender in the area around the right cheek close to the rectum. Cannot do a digital exam of the rectum as patient cannot tolerate exam. Did not see any obvious sign of mass but does appear to have a lot of induration especially on the right side but no obvious erythema. He does appear to have some possible greenish discharge coming from the rectum itself. mUSCULOSKELETAL: No obvious deformities. No clubbing. No cyanosis. No edema. NEUROLOGICAL: Awake and alert. No obvious cranial nerve deficits. Motor grossly within normal limits. Normal speech. PSYCHIATRIC: Appropriate mood and affect; insight and judgment normal. Course Initial Documented Vital Signs Temperature 100.1 F H 04/29/18 18:36 Pulse Rate 106 H 04/29/18 18:36 Respiratory Rate 18 04/29/18 18:36 Blood Pressure 131/57 L 04/29/18 18:36 Pulse Oximetry 100 04/29/18 18:36 Last Documented Vital Signs Temperature 100.1 F H 04/29/18 18:36 Pulse Rate 106 H 04/29/18 18:36 Respiratory Rate 18 04/30/18 02:10 Blood Pressure 131/57 L 04/29/18 18:36 Pulse Oximetry 100 04/29/18 18:36 Medical Decision Making GABY Attestation GABY supervised visit: Yes Attestation: I, Dr. Terry, have reviewed the advance practice practitioner's documentation and am in agreement, met with the patient face to face, made the diagnosis, and the medical decision making was done by me. *My assessment and Findings: Patient with the perirectal abscess, he was given Zosyn as well as Flagyl, he will be admitted to the hospital. MDM Narrative Medical decision making narrative: 23-year-old male who presents to the ED for evaluation of rectal pain. Patient was properly examined and was found to have signs and symptoms consistent appears to be a rectal abscess. My attending was made aware of findings and recommends labs and imaging. This was ordered. Patient already on antibiotics and for now we will hold off on giving her start antibiotics. Recommend imaging to see what is going on. Patient was given pain medications IV. Labs and imaging still pending at the writing of this note. Patient with a perirectal abscess measuring 5 x 5 x 2.0 cm in size. Case was reviewed with Dr. Reyes who accepts patient to service Medical Screen Exam Complete: Yes Emergency Medical Condition: Yes Differential Diagnosis Differential Diagnosis: Rectal abscess versus cellulitis versus hemorrhoid versus fistula Medical Records Medical records reviewed: Yes I reviewed the patient's medical records. Lab Data Lab results reviewed: Yes I reviewed the patient's lab results. Result diagrams: 04/29/18 23:15 04/29/18 23:15 Lab Results 04/29/18 04/29/18 04/30/18 Range/Units 23:15 23:15 00:32 WBC 16.7 H (4.0-11.0) th/mm3 RBC 3.51 L (4.50-5.90) mil/mm3 Hgb 11.0 L (13.0-17.0) gm/dL Hct 32.3 L (39.0-51.0) % MCV 92.1 (80.0-100.0) fL MCH 31.3 (27.0-34.0) pg MCHC 34.0 (32.0-36.0) % RDW 12.9 (11.6-17.2) % Plt Count 332 (150-450) th/mm3 MPV 8.2 (7.0-11.0) fL Neut % (Auto) 79.1 H (16.0-70.0) % Lymph % (Auto) 10.0 (9.0-44.0) % [place] % (Auto) 9.2 H (0.0-8.0) % Eos % (Auto) 1.3 (0.0-4.0) % Baso % (Auto) 0.4 (0.0-2.0) % Neut # (Auto) 13.2 H (1.8-7.7) th/mm3 Lymph # (Auto) 1.7 (1.0-4.8) th/mm3 [place] # (Auto) 1.5 H (0.0-0.9) th/mm3 Eos # (Auto) 0.2 (0.0-0.4) th/mm3 Baso # (Auto) 0.1 (0.0-0.2) th/mm3 WBC Differential . Differential Comment Auto diff final PT 10.9 (9.8-11.6) sec INR 1.1 Ratio APTT 35.5 H (23.4-31.7) sec Sodium 137 (136-145) meq/L Potassium 3.6 (3.5-5.1) meq/L Chloride 98 (98-107) meq/L Carbon Dioxide 32.1 H (21.0-32.0) meq/L Anion Gap 7 (5-15) meq/L BUN 7 (7-18) mg/dL Creatinine 0.81 (0.60-1.30) mg/dL Estimated GFR Greater than 89 (>89) mL/min Random Glucose 104 (74-106) mg/dL Lactic Acid (0.4-2.0) mmol/L Calcium 8.8 (8.5-10.1) mg/dL 04/30/18 Range/Units 00:37 WBC (4.0-11.0) th/mm3 RBC (4.50-5.90) mil/mm3 Hgb (13.0-17.0) gm/dL Hct (39.0-51.0) % MCV (80.0-100.0) fL MCH (27.0-34.0) pg MCHC (32.0-36.0) % RDW (11.6-17.2) % Plt Count (150-450) th/mm3 MPV (7.0-11.0) fL Neut % (Auto) (16.0-70.0) % Lymph % (Auto) (9.0-44.0) % [place] % (Auto) (0.0-8.0) % Eos % (Auto) (0.0-4.0) % Baso % (Auto) (0.0-2.0) % Neut # (Auto) (1.8-7.7) th/mm3 Lymph # (Auto) (1.0-4.8) th/mm3 [place] # (Auto) (0.0-0.9) th/mm3 Eos # (Auto) (0.0-0.4) th/mm3 Baso # (Auto) (0.0-0.2) th/mm3 WBC Differential Differential Comment PT (9.8-11.6) sec INR Ratio APTT (23.4-31.7) sec Sodium (136-145) meq/L Potassium (3.5-5.1) meq/L Chloride (98-107) meq/L Carbon Dioxide (21.0-32.0) meq/L Anion Gap (5-15) meq/L BUN (7-18) mg/dL Creatinine (0.60-1.30) mg/dL Estimated GFR (>89) mL/min Random Glucose (74-106) mg/dL Lactic Acid 0.8 (0.4-2.0) mmol/L Calcium (8.5-10.1) mg/dL Imaging Data Attestation: I personally reviewed and interpreted this imaging study as follows : Radiologist's impression: Pelvis CT 04/30/18 00:00 CONCLUSION: Findings of perirectal abscess as above. New bony destruction involving the anterior right ilium which could represent donor site for bone graft or malignancy. Correlation with clinical findings is recommended. Discharge Plan Discharge Disposition Patient Disposition: 30 Still Patient Discharge Condition Condition: Stable Discharge Details Diagnosis: Sandi-rectal abscess Physicians Team ED Provider: Em Terry ED Midlevel Provider: Faisal Elliott Primary Care Provider: Primary Care Bel Thomas Rxs /Orders / Referrals /Forms Prescriptions: No Action hydrocodone-acetaminophen [[place]] 10-325 mg Tablet 1 tab PO Q4H Qty: 40 RF: 0 rivaroxaban [Xarelto] 10 mg Tablet 10 mg PO DAILY Qty: 14 RF: 0 Status ED Status: Admitted Patient
[2018-04-29 23:44] LABS: Baso # (Auto) 0.1 th/mm3 (0.0-0.2); Baso % (Auto) 0.4 % (0.0-2.0); Eos # (Auto) 0.2 th/mm3 (0.0-0.4); Eos % (Auto) 1.3 % (0.0-4.0); Hematocrit 32.3 % (39.0-51.0); Lymph # (Auto) 1.7 th/mm3 (1.0-4.8); Mean Corpuscular Hemoglobin 31.3 pg (27.0-34.0); Mean Corpuscular Volume 92.1 fL (80.0-100.0); Mean Platelet Volume 8.2 fL (7.0-11.0); Mono # (Auto) 1.5 th/mm3 (0.0-0.9); Mono % (Auto) 9.2 % (0.0-8.0); Neut # (Auto) 13.2 th/mm3 (1.8-7.7); Neut % (Auto) 79.1 % (16.0-70.0); Platelet Count 332 th/mm3 (150-450); Red Blood Count 3.51 mil/mm3 (4.50-5.90); Red Cell Distribution Width 12.9 % (11.6-17.2); White Blood Count 16.7 th/mm3 (4.0-11.0)
[2018-04-29 23:58] LABS: Anion Gap 7 meq/L (5-15); Blood Urea Nitrogen 7 mg/dL (7-18); Calcium 8.8 mg/dL (8.5-10.1); Carbon Dioxide 32.1 meq/L (21.0-32.0); Chloride 98 meq/L (98-107); Glomerular Filtration Rate Greater Than 89 mL/min (>89); Glucose,Random 104 mg/dL (74-106); Potassium 3.6 meq/L (3.5-5.1); Sodium 137 meq/L (136-145)
[2018-04-30] MEDS ORDERED: HYDROmorphone PF Inj 2 MG/ML Vial IV.PUSH ONE (00:46)
[2018-04-30] MEDS ORDERED: Piperacil/Tazo 3.375 GM Premix 50 ML IV.SIG ONE (00:51)
[2018-04-30 00:53] LABS: Activated Partial Thrombo Time 35.5 sec (23.4-31.7); INR 1.1 Ratio; Prothrombin Time 10.9 sec (9.8-11.6)
--- NOTE | 2018-04-30 02:32 | CT ---
EXAM DATE: 04/30/2018 2:15 AM EDT AGE/SEX: 23 years / Male INDICATIONS: Pain around rectum, evaluate for abscess. CLINICAL DATA: This is the patient's initial encounter. Patient reports that signs and symptoms have been present for 1 week and indicates a pain score of 8/10. MEDICAL/SURGICAL HISTORY: Osteomyelitis. None. RADIATION DOSE: 10.55 CTDI (mGy) COMPARISON: [facility] – [place], CT ABDOMEN & PELVIS W CONTRAST, 08/29/2017. . TECHNIQUE: Multiple contiguous helical axial images were obtained through pelvis following bolus inf usion of 90 ml Omnipaque 350 (iohexol) nonionic water-soluble contrast as a single exam dose. Imag es were obtained using multiple row detector helical technique. . Using automated exposure control an d adjustment of the mA and/or kV according to patient size, radiation dose was kept as low as reasona cari achievable to obtain optimal diagnostic quality images. DICOM format image data is available norris ctronically for review and comparison. FINDINGS: Examination of the pelvis demonstrates no evidence of free fluid or pelvic mass. No abnormally enlarg ed inguinal or retroperitoneal lymph nodes are present. The bladder is unremarkable. There is diverti culosis without evidence of diverticulitis. There are findings of perirectal abscess on the right measuring 5.5 x 2.0 cm. Bone windows demonstrate a new area of lucency involving the anterior aspect of the iliac wing on the right not present on the prior examination. This is suspicious for malignancy or may reflect donor s ite for bone graft. This would be accessible to percutaneous biopsy. CONCLUSION: Findings of perirectal abscess as above. New bony destruction involving the anterior right ilium which could represent donor site for bone gr aft or malignancy. Correlation with clinical findings is recommended. Electronically signed by: Truman Garcia MD 04/30/2018 2:31 AM EDT
[2018-04-30] MEDS ORDERED: Bisacodyl 10 MG Supp RECTAL PRN (03:37)
[2018-04-30] MEDS ORDERED: Acetaminophen 325 MG Tablet PO PRN (03:37)
[2018-04-30] MEDS ORDERED: Sodium Chloride 0.9% 2 ML Flush PRN IV.FLUSH (03:42)
[2018-04-30] MEDS: Morphine Sulfate Inj 2 MG/ML Vial IV.PUSH PRN ×4 (04:17→16:07)
--- NOTE | 2018-04-30 04:25 | P.HPIM ---
History of Present Illness Primary Care Physician: No Primary Care Physician History of Present Illness: This is a 23-year-old male with a PMH of Right Tibia Fx who presented w/ c/o rectal pain. 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 Mejia, initially on Vanc q8h, however levels not therapeutic and switched to Cubicin which he's been on for the last 2wks. Comes in now w/ severe rectal pain, 04/07, worse w/ movement, non-radiating. No associated fever/chills. Takes Lortab at home for Osteo w/ no improvement in pain complaints. On arrival, BP 131/57, HR 106, O2 sat 100% on RA, Temp 100.1. WBC 16.7. INR 1.1. Chemistry unremarkable. CT Pelvis with perirectal abscess. New bony destruction involving anterior right ilium, possibly donor site versus malignancy. S/p Zosyn/Flagyl in ER. - Diagnosis (1) Sepsis (2) Osteomyelitis (3) Sandi-rectal abscess Inpatient Certification: I certify that the inpatient services were ordered in accordance with Medicare regulations governing the order. This includes certification that hospital inpatient services are reasonable and necessary and in the case of services not specified as inpatient-only under 42 CFR 419.22(n), that they are appropriately provided as inpatient services in accordance to with the 2-midnight benchmark under 43 CFR 412.3(e) Estimated Total Length of Stay (Days): 2 Plans for Post Hospital Care: Not yet determined Review of Systems PAST FAMILY HISTORY: Reviewed. No h/o DM or CAD All other systems reviewed negative except as stated in HPI PMFSH - History History Provided By: Patient - Medical History Medical History: Medical History (Last Reviewed 04/29/18 @ 22:59 by LEIA Morris) Osteomyelitis History of tibial fracture Patient denies medical problems - Surgical History Surgical History: Surgical History (Last Reviewed 04/29/18 @ 22:59 by LEIA Morris) History of open reduction and internal fixation (ORIF) procedure - Tobacco History Second Hand Smoke Exposure: No Tobacco Use In Past 30 Days: No Smoking Status: Former smoker Tobacco Type: Cigarettes - Alcohol History How Often Do You Have a Drink Containing Alcohol: Monthly or less - Substance Use History Substance History: Active Abuse - Substance Use Type Marijuana Status: Active Route Used: Inhalation Reason for Use: Calm Down - Travel History Recent Travel in the [place] Within the Last 8 Weeks: No Recent Travel Out of the Country Within the Last 8 Weeks: No - Immunization History Tetanus Immunization: <5 Years Medications and Allergies Active Medications: Active Medications Acetaminophen (Tylenol) 650 mg PO Q4H PRN PRN Reason: Temp > 100.4 Hydrocodone Bitart/Acetaminophen ([place] 5/325) 1 tab PO Q4H PRN PRN Reason: PAIN 3-5 Al Hydroxide/Mg Hydroxide (Milk Of Magnesia Liq) 30 ml PO Q12H PRN PRN Reason: Mild Constipation Bisacodyl (Dulcolax Supp) 10 mg RECTAL DAILY PRN PRN Reason: SEVERE CONSITIPATION Metronidazole/Sodium Chloride (Flagyl 500 Mg Inj) 100 mls @ 100 mls/hr IV.SIG ONCE ONE Stop: 04/30/18 04:31 Sodium Chloride (Ns Inj) 1,000 mls @ 100 mls/hr IV.CONT .Q10H [place] Ampicillin Sodium/Sulbactam (Sodium 3 gm/ Sodium Chloride) 100 mls @ 200 mls/ hr IV.SIG Q6H [place] Lactulose (Lactulose Liq) 30 ml PO DAILY PRN PRN Reason: SEVERE CONSITIPATION Morphine Sulfate (Morphine Inj) 2 mg IV.PUSH Q4H PRN PRN Reason: PAIN 6-10 Ondansetron HCl (Zofran Inj) 4 mg IV.PUSH Q6H PRN PRN Reason: NAUSEA OR VOMITING Senna/Docusate Sodium (Sandi-Colace) 1 tab PO BID [place] Sennosides (Senokot) 17.2 mg PO Q12H PRN PRN Reason: Moderate Constipation Sodium Chloride (Ns Flush) 2 ml IV.FLUSH BID [place] Sodium Chloride (Ns Flush) 2 ml IV.FLUSH PRN PRN PRN Reason: FLUSH AFTER USING IV ACCESS Allergies Allergy/AdvReac Type Severity Reaction Status Date / Time No Known Allergies Allergy Verified 04/01/18 09:54 Exam Vital signs: Vital Signs 04/29/18 18:36 04/30/18 02:10 11/02/18 04:15 Temperature 100.1 F H Pulse Rate 106 H Respiratory Rate 18 18 18 Blood Pressure 131/57 L Pulse Oximetry 100 Intake & Output 04/29/18 04/29/18 04/30/18 06:59 18:59 06:59 Intake Total 50 / 50 Balance 50 / 50 Weight 80.739 kg Intake: IV 50 / 50 Zosyn 3.375 GM Premix 50 ML @ 50 / 50 100 mls/hr IV.SIG ONCE ONE Rx#: [id number] Narrative: PE: GENERAL: Young white male in no acute distress. SKIN: Focused skin assessment warm and dry. HEENT: PERRLA, EOMI. No scleral icterus or conjunctival pallor. No lid lag or facial droop. CARDIOVASCULAR: Regular rate and rhythm. No obvious murmurs to auscultation. No chest tenderness to palpation. RESPIRATORY: No obvious rhonchi or wheezing. Clear to auscultation. Breath sounds equal bilaterally. GASTROINTESTINAL: Abdomen soft, non-tender, nondistended. BS normal. MUSCULOSKELETAL: Extremities without clubbing, cyanosis, or edema. No obvious deformities. NEUROLOGICAL: Awake, alert and oriented x4. No focal neurologic deficits. Moving both upper and lower extremities spontaneously. PSYCHIATRIC: Appropriate mood and affect. Insight and judgment normal. Results - Labs CBC & Chem 7: 04/29/18 23:15 04/29/18 23:15 Labs: Short CBC 04/29/18 Range/Units 23:15 WBC 16.7 H (4.0-11.0) th/mm3 Hgb 11.0 L (13.0-17.0) gm/dL Hct 32.3 L (39.0-51.0) % Plt Count 332 (150-450) th/mm3 BMP 04/29/18 23:15 Sodium 137 Potassium 3.6 Chloride 98 Carbon Dioxide 32.1 H BUN 7 Creatinine 0.81 Calcium 8.8 - Imaging Impressions Pelvis CT 04/30/18 00:00 CONCLUSION: Findings of perirectal abscess as above. New bony destruction involving the anterior right ilium which could represent donor site for bone graft or malignancy. Correlation with clinical findings is recommended. Caprini VTE Risk Assessment Caprini VTE Risk Assessment: No/Low Risk (score <= 1) Caprini Risk Assessment Model: Point Value = 1 Point Value = 2 Point Value = 3 Point Value = 5 Age 41-60 Minor surgery BMI > 25 kg/m2 Swollen legs Varicose veins or History of unexplained or recurrent spontaneous Oral contraceptives or hormone replacement Sepsis (< 1 month) Serious lung disease, including pneumonia (< 1 month) Abnormal pulmonary function Acute myocardial infarction Congestive heart failure (< 1 month) History of inflammatory bowel disease Medical patient at bed rest Age 61-74 Arthroscopic surgery Major open surgery (> 45 min) Laparoscopic surgery (> 45 min) Malignancy Confined to bed (> 72 hours) Immobilizing plaster cast Central venous access Age >= 75 History of VTE Family history of VTE Factor V Leiden Prothrombin [id number] Lupus anticoagulant Anticardiolipin antibodies Elevated serum homocysteine Heparin-induced thrombocytopenia Other congenital or acquired thrombophilia Stroke (< 1 month) Elective arthroplasty Hip, pelvis, or leg fracture Acute spinal cord injury (< 1 month) Prophylaxis Regimen: Total Risk Factor Score Risk Level Prophylaxis Regimen 0-1 Low Early ambulation 2 Moderate Order ONE of the following: *Sequential Compression Device (SCD) *Heparin 5000 units SQ BID 3-4 Higher Order ONE of the following medications: *Heparin 5000 units SQ TID *Enoxaparin/Lovenox 40 mg SQ daily (WT < 150 kg, CrCl > 30 mL/min) *Enoxaparin/Lovenox 30 mg SQ daily (WT < 150 kg, CrCl > 10-29 mL/min) *Enoxaparin/Lovenox 30 mg SQ BID (WT < 150 kg, CrCl > 30 mL/min) AND/OR *Sequential Compression Device (SCD) 5 or more Highest Order ONE of the following medications: *Heparin 5000 units SQ TID (Preferred with Epidurals) *Enoxaparin/Lovenox 40 mg SQ daily (WT < 150 kg, CrCl > 30 mL/min) *Enoxaparin/Lovenox 30 mg SQ daily (WT < 150 kg, CrCl > 10-29 mL/min) *Enoxaparin/Lovenox 30 mg SQ BID (WT < 150 kg, CrCl > 30 mL/min) AND *Sequential Compression Device (SCD) Assessment and Plan - Assessment (1) Sepsis Code(s): A41.9 - Sepsis, unspecified organism Status: Acute (2) Osteomyelitis Code(s): M86.9 - Osteomyelitis, unspecified Status: Acute (3) Sandi-rectal abscess Code(s): K61.1 - Rectal abscess Status: Acute - Plan A/P: 1. Sepsis: Temp 100.7, HR 106, WBC 16.7, Source-Perirectal abscess, s/p IV Abx , follow up cultures. 2. Perirectal Abscess: CT Pelvis w/ perirectal abscess, severe pain on exam, continue analgesics/antiemetics, consult Colorectal Sx for further eval/ intervention. Continue IV Unsayn, follow up cultures. 3. Osteomyelitis: Right LE, on Cubicin, following w/ Dr. Mejia, has upcoming appt w/ Dr. Graham as outpatient, will continue w/ IV Abx, consult ID for further recommendations 4. DVT Prophylaxis: SCD/Teds 5. Social work for d/c planning as needed. 6. Case discussed w/ ER physician at length, labs/records/imaging reviewed by me.
[2018-04-30] MEDS: Sod Chloride 0.9% Inj 1,000 ML IV.CONT SCH ×3 (05:00→23:55)
[2018-04-30] MEDS ORDERED: Senna/Docusate Sodium 8.6/50 MG Tablet PO SCH (09:00)
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
[2018-04-30] MEDS: Ampicillin/Sulbactam Inj 3 GM in Sodium Chloride 0.9% Inj 100 ML IV.SIG SCH ×3 (09:35→20:49)
[2018-04-30] MEDS: DAPTOmycin Inj 650 MG in Sodium Chlor 0.9% Inj 100 ML IV.SIG SCH (10:42)
[2018-04-30] MEDS: Sodium Chloride 0.9% 2 ML Flush BID IV.FLUSH SCH ×2 (11:58→20:49)
[2018-04-30] MEDS ORDERED: Chlorhexidine Gluconate 2% 1 Pack (2 Cloths) TOPICAL ONE (15:53)
[2018-04-30] MEDS ORDERED: Metoprolol Tartrate 25 MG Tablet PO ONE (15:53)
[2018-04-30] MEDS ORDERED: Sodium Chlor 0.9% Inj 500 ML IV.SIG SCH (16:00)
[2018-04-30] MEDS ORDERED: Lidocaine PF 1% Inj 5 ML Syringe OTHER ONE (16:39)
[2018-04-30] MEDS ORDERED: Bupivacaine/Epinephrine PF Inj 0.5% 30 ML Vial ONE (16:52)
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
--- NOTE | 2018-04-30 17:04 | P.PNADD ---
Addendum to Inpatient Note Reason for Addendum: Additional Documentation Additional information: The pt was taken down to the OR by CRS. Continue current management including antibiotics and wound care per surgery. ID consult appreciated.
[2018-04-30] MEDS ORDERED: fentaNYL Citrate Inj 100 MCG/2 ML Ampul ONE (17:17)
[2018-04-30] MEDS ORDERED: *morphine SULFATE 4 MG/ML PERIprocedure ONLY ONE ×2 (17:25→17:32)
[2018-04-30] MEDS ORDERED: Morphine Inj 4 MG/ML Vial IV.PUSH PRN (17:30)
[2018-05-01] MEDS: Ampicillin/Sulbactam Inj 3 GM in Sodium Chloride 0.9% Inj 100 ML IV.SIG SCH ×3 (02:09→17:54)
[2018-05-01 08:16] LABS: Baso # (Auto) 0.1 th/mm3 (0.0-0.2); Baso % (Auto) 0.6 % (0.0-2.0); Eos # (Auto) 0.3 th/mm3 (0.0-0.4); Eos % (Auto) 3.1 % (0.0-4.0); Hematocrit 31.6 % (39.0-51.0); Hemoglobin 10.9 gm/dL (13.0-17.0); Lymph % (Auto) 19.7 % (9.0-44.0); Mean Corpuscular HGB Conc 34.4 % (32.0-36.0); Mean Corpuscular Hemoglobin 31.9 pg (27.0-34.0); Mean Corpuscular Volume 92.7 fL (80.0-100.0); Mean Platelet Volume 7.9 fL (7.0-11.0); Mono # (Auto) 0.7 th/mm3 (0.0-0.9); Mono % (Auto) 7.5 % (0.0-8.0); Neut # (Auto) 6.9 th/mm3 (1.8-7.7); Neut % (Auto) 69.1 % (16.0-70.0); Platelet Count 286 th/mm3 (150-450); Red Blood Count 3.41 mil/mm3 (4.50-5.90); Red Cell Distribution Width 13.1 % (11.6-17.2); White Blood Count 9.9 th/mm3 (4.0-11.0)
[2018-05-01 08:17] LABS: Albumin 3.4 g/dL (3.4-5.0); Anion Gap 7 meq/L (5-15); Aspartate Aminotransferase 21 U/L (15-37); Blood Urea Nitrogen 4 mg/dL (7-18); Calcium 9.2 mg/dL (8.5-10.1); Carbon Dioxide 30.8 meq/L (21.0-32.0); Chloride 102 meq/L (98-107); Glomerular Filtration Rate Greater Than 89 mL/min (>89); Glucose,Random 97 mg/dL (74-106); Potassium 3.9 meq/L (3.5-5.1); Sodium 140 meq/L (136-145)
[2018-05-01 08:19] LABS: Alanine Aminotransferase 60 U/L (12-78)
[2018-05-01 08:22] LABS: Alkaline Phosphatase 178 U/L (45-117); Total Protein 7.4 g/dL (6.4-8.2)
[2018-05-01 08:26] LABS: Creatine Kinase 64 U/L (39-308)
[2018-05-01] MEDS: Sodium Chloride 0.9% 2 ML Flush BID IV.FLUSH SCH (08:39)
--- NOTE | 2018-05-01 11:36 | P.PNIM ---
Subjective Interval history: f/u; perirectal abscess in no acute distress. says that he's more comfortable today and pain is somewhat better. no fever. d/w the RN. Physical Exam Vital signs: Vital Signs 04/30/18 12:00 04/30/18 17:10 04/30/18 17:30 Temperature 98.2 F 98.4 F 98.5 F Pulse Rate 63 72 72 Respiratory Rate 18 25 H 17 Blood Pressure 144/77 H 148/70 H 148/71 H Pulse Oximetry 97 100 100 04/30/18 20:00 04/30/18 23:52 05/01/18 00:00 Temperature 97.5 F L 98.4 F Pulse Rate 62 62 Respiratory Rate 18 20 18 Blood Pressure 144/75 H 137/65 Pulse Oximetry 94 L 98 05/01/18 04:00 05/01/18 04:21 05/01/18 06:21 Temperature 97.8 F Pulse Rate 54 L Respiratory Rate 18 20 18 Blood Pressure 138/64 Pulse Oximetry 100 Intake & Output 04/30/18 05/01/18 05/01/18 18:59 06:59 18:59 Intake Total 1127 / 1127 680 / 680 100 / 100 Output Total 1850 / 1850 Balance 1117 / 1117 -1170 / -1170 100 / 100 Weight 78.8 kg Intake: IV 827 / 827 200 / 200 100 / 100 NS Inj 1,000 ML @ 60 mls/hr IV. 527 / 527 CONT .[id number] [facility] Rx#:[id number] Unasyn Inj 3 GM In NS Inj 100 200 / 200 200 / 200 100 / 100 ML @ 200 mls/hr IV.SIG Q6H [facility] Rx#:[id number] Cubicin Inj 650 MG In NS Inj 100 / 100 100 ML @ 200 mls/hr IV.SIG Q24H [facility] Rx#:[id number] Oral 480 / 480 Anesthesia Amount 300 / 300 Output: Urine 1850 / 1850 Estimated Blood Loss Other: # Voids 3 - Constitutional no acute distress - Routine Respiratory Exam Present: CTA bilaterally - Routine Cardiovascular Exam Present: RRR - Routine Abdominal Exam Present: soft - Routine Extremities Exam Comments: no pedal edema. - Routine Neurological Exam Present: alert, oriented X3 Results - Labs CBC & Chem 7: 05/01/18 06:00 05/01/18 07:00 Laboratory Results - last 24 hr 05/01/18 05/01/18 06:00 07:00 WBC 9.9 RBC 3.41 L Hgb 10.9 L Hct 31.6 L MCV 92.7 MCH 31.9 MCHC 34.4 RDW 13.1 Plt Count 286 MPV 7.9 Neut % (Auto) 69.1 Lymph % (Auto) 19.7 [place] % (Auto) 7.5 Eos % (Auto) 3.1 Baso % (Auto) 0.6 Neut # (Auto) 6.9 Lymph # (Auto) 2.0 [place] # (Auto) 0.7 Eos # (Auto) 0.3 Baso # (Auto) 0.1 WBC Differential . Differential Comment Auto diff final Sodium 140 Potassium 3.9 Chloride 102 Carbon Dioxide 30.8 Anion Gap 7 BUN 4 L Creatinine 0.65 Estimated GFR Greater than 89 Random Glucose 97 Calcium 9.2 Total Bilirubin 0.5 AST 21 ALT 60 Alkaline Phosphatase 178 H Total Creatine Kinase 64 Total Protein 7.4 Albumin 3.4 Microbiology 04/30/18 01:50 Blood - Peripheral Aerobic Blood Culture - Preliminary No growth in 1 day 04/30/18 01:50 Blood - Peripheral Anaerobic Blood Culture - Preliminary No growth in 1 day 04/30/18 01:45 Blood - Peripheral Aerobic Blood Culture - Preliminary No growth in 1 day 04/30/18 01:45 Blood - Peripheral Anaerobic Blood Culture - Preliminary No growth in 1 day Assessment and Plan - Assessment (1) Sepsis Code(s): A41.9 - Sepsis, unspecified organism Status: Acute (2) Osteomyelitis Code(s): M86.9 - Osteomyelitis, unspecified Status: Acute (3) Sandi-rectal abscess Code(s): K61.1 - Rectal abscess Status: Acute - Plan 1. Sepsis: Temp 100.7, HR 106, WBC 16.7, Source-Perirectal abscess, s/p IV Abx , follow up cultures. 2. Perirectal Abscess: CT Pelvis w/ perirectal abscess, severe pain on exam, continue analgesics/antiemetics, consulted Colorectal Sx - s/p I/D- Continue IV Unsayn, follow up cultures. 3. Osteomyelitis: Right LE, on Cubicin, following w/ Dr. Mejia, has upcoming appt w/ Dr. Graham as outpatient, will continue w/ IV Abx. ID consult appreciated. 4. DVT Prophylaxis: SCD/Teds Discharge Planning: when cleared by colorectal surgery and ID.
[2018-05-01] MEDS: DAPTOmycin Inj 650 MG in Sodium Chlor 0.9% Inj 100 ML IV.SIG SCH (11:44)
--- NOTE | 2018-05-01 12:48 | P.PNCS ---
Subjective Colorectal Surgery Post Op Day #: 1 Interval history: s/p I & D ischiorectal abscess fairly comfortable, wants to go home Objective Result Diagrams: 05/01/18 06:00 05/01/18 07:00 Objective Remarks: wound clean serosanguinous drainage Assessment and Plan - Assessment (1) Sandi-rectal abscess Code(s): K61.1 - Rectal abscess Status: Acute - Plan Can go home when ok with Medical Team Followup Dr. Keys this week.
[2018-05-01] MEDS ORDERED: Morphine Sulfate Inj 2 MG/ML Vial IV.PUSH PRN (13:00)
--- NOTE | 2018-05-01 14:47 | P.DCO ---
- Physical Therapy Order: Evaluate and treat - Home Health Nursing Order: Signs/symptoms of disease process, Medication education-adverse effect, IV medication administration - Case Management Consult Yes - Certification I have seen patient Rodriguez Guaman II on 05/01/18. My clinical findings support the need for the requested home health care services because: Limited mobility due to disease progression I certify that my clinical findings support that this patient is homebound because: Post-op weakness
[2018-05-01 15:10] VITALS: BP 129/66; PULSE 56; RESP 16; TEMP 97.6; O2SAT 100
--- NOTE | 2018-05-01 17:10 | P.PNID ---
Subjective Remarks: ID [id number] for Dr Mejia Pt with Patient is a 23-year-old male, known to me from his previous hospitalization, presented to the hospital complaining of 1 week history of pain in the perirectal region. I saw him during his admission last April 05. He initially sustained an open fracture of the right tib-fib last August 2017. He underwent IM nail fixation of the fracture after initially had debridement and placement of an external fixator. He did well up until about a month prior to his last admission he started experiencing pain in his right lower extremity. He was diagnosed to have nonunion of the fracture and underwent repeat surgery on April 02, had removal of the hardware with revision of the IM nail fixation and he had a bone graft done. Intraoperative cultures were taken at that time. The culture came back staph epidermidis, and the patient was readmitted on April 06. He was discharged around April 08. He was initially on IV Vanco, but he was requiring 3 times a day dosing, so he was discharged on IV Cubicin. Patient has been tolerating the IV Cubicin. He has not had any rash or itching. No diarrhea. No muscle aches. No nausea or vomiting or diarrhea. He had normal CPKs on his lab work. Patient has had a follow-up with Dr. Mukherjee. He has a follow-up coming up with Dr. Graham. Patient has been instructed to have no weightbearing on his right lower extremity. About a week prior to this admission patient started noticing pain in the perirectal region. He thought it might be hemorrhoids, and his family got him some wipes and some topical treatment to put in the area. There was some minimal relief. The pain just kept on getting worse, and he presented to the hospital for further evaluation and treatment. Temperature here is 100+. He has not had any episode of chills or sweats at home. His temperatures have been normal at home. Pelvic CT showed evidence of perirectal abscess on the right side. His WBC is elevated. He is heterosexual. Infectious disease consultation has been requested to assist with evaluation and treatment. Review of Systems Constitutional: Reports fever(s), Denies chills, Denies night sweats Eyes: Denies discharge, Denies dry eyes Ears, Nose, Mouth, and Throat: Denies difficulty swallowing, Denies ear pain, Denies nasal discharge, Denies sore throat, Denies throat swelling Cardiovascular: Denies chest pain, Denies shortness of breath Respiratory: Denies chest congestion, Denies cough, Denies shortness of breath Gastrointestinal: Denies abdominal pain, Denies constipation, Denies loose stools, Denies nausea, Denies pain with swallowing, Denies vomiting Genitourinary: Denies difficulty urinating, Denies painful urination Musculoskeletal: Reports joint pain, Denies muscle cramps, Denies muscle weakness Skin/Breast: Denies rash, Denies wounds Neurologic: Denies headache(s) PMFSH - History History Provided By: Patient - Medical History Medical History: Medical History (Last Reviewed 04/30/18 @ 09:16 by Lanie Mejia MD) Osteomyelitis History of tibial fracture Patient denies medical problems - Surgical History Surgical History: Surgical History (Last Reviewed 04/30/18 @ 09:16 by Lanie Mejia MD) History of open reduction and internal fixation (ORIF) procedure - Tobacco History Second Hand Smoke Exposure: No Tobacco Use In Past 30 Days: No Smoking Status: Former smoker Tobacco Type: Cigarettes - Alcohol History How Often Do You Have a Drink Containing Alcohol: Monthly or less - Substance Use History Substance History: Active Abuse - Substance Use Type Marijuana Status: Active Route Used: Inhalation Reason for Use: Calm Down - Travel History Recent Travel in the [place] Within the Last 8 Weeks: No Recent Travel Out of the Country Within the Last 8 Weeks: No - Immunization History Tetanus Immunization: <5 Years Medications and Allergies Active Medications: Active Medications Acetaminophen (Tylenol) 650 mg PO Q4H PRN PRN Reason: Temp > 100.4 Hydrocodone Bitart/Acetaminophen ([place] 5/325) 1 tab PO Q4H PRN PRN Reason: PAIN 3-5 Last Admin: 04/30/18 07:29 Dose: 1 tab Al Hydroxide/Mg Hydroxide (Milk Of Magnesia Liq) 30 ml PO Q12H PRN PRN Reason: Mild Constipation Bisacodyl (Dulcolax Supp) 10 mg RECTAL DAILY PRN PRN Reason: SEVERE CONSITIPATION Sodium Chloride (Ns Inj) 1,000 mls @ 100 mls/hr IV.CONT .Q10H [facility] Last Admin: 04/30/18 05:00 Dose: 100 mls/hr Ampicillin Sodium/Sulbactam (Sodium 3 gm/ Sodium Chloride) 100 mls @ 200 mls/ hr IV.SIG Q6H [facility] Daptomycin 650 mg/ Sodium (Chloride) 100 mls @ 200 mls/hr IV.SIG Q24H [facility] Stop: 05/19/18 23:00 Lactulose (Lactulose Liq) 30 ml PO DAILY PRN PRN Reason: SEVERE CONSITIPATION Morphine Sulfate (Morphine Inj) 2 mg IV.PUSH Q4H PRN PRN Reason: PAIN 6-10 Last Admin: 04/30/18 08:04 Dose: 2 mg Ondansetron HCl (Zofran Inj) 4 mg IV.PUSH Q6H PRN PRN Reason: NAUSEA OR VOMITING Senna/Docusate Sodium (Sandi-Colace) 1 tab PO BID [facility] Sennosides (Senokot) 17.2 mg PO Q12H PRN PRN Reason: Moderate Constipation Sodium Chloride (Ns Flush) 2 ml IV.FLUSH BID [facility] Sodium Chloride (Ns Flush) 2 ml IV.FLUSH PRN PRN PRN Reason: FLUSH AFTER USING IV ACCESS Allergies Allergy/AdvReac Type Severity Reaction Status Date / Time No Known Allergies Allergy Verified 04/01/18 09:54 Exam Vital signs: Vital Signs 04/29/18 18:36 04/30/18 02:10 04/30/18 04:15 Temperature 100.1 F H Pulse Rate 106 H Respiratory Rate 18 18 18 Blood Pressure 131/57 L Pulse Oximetry 100 04/30/18 04:25 04/30/18 05:30 Temperature Pulse Rate 66 Respiratory Rate 18 15 Blood Pressure 136/69 Pulse Oximetry 99 Intake & Output 04/29/18 04/30/18 04/30/18 18:59 06:59 18:59 Intake Total 150 / 150 Balance 150 / 150 Weight 80.739 kg Intake: IV 150 / 150 Zosyn 3.375 GM Premix 50 ML @ 50 / 50 100 mls/hr IV.SIG ONCE ONE Rx#: [id number] Flagyl 500 MG Inj 100 ML @ 100 100 / 100 mls/hr IV.SIG ONCE ONE Rx#: [id number] Narrative: Physical examination Results - Labs CBC & Chem 7: 04/29/18 23:15 04/29/18 23:15 Labs: Laboratory Results - last 24 hr 04/29/18 04/29/18 04/30/18 23:15 23:15 00:32 WBC 16.7 H RBC 3.51 L Hgb 11.0 L Hct 32.3 L MCV 92.1 MCH 31.3 MCHC 34.0 RDW 12.9 Plt Count 332 MPV 8.2 Neut % (Auto) 79.1 H Lymph % (Auto) 10.0 [place] % (Auto) 9.2 H Eos % (Auto) 1.3 Baso % (Auto) 0.4 Neut # (Auto) 13.2 H Lymph # (Auto) 1.7 [place] # (Auto) 1.5 H Eos # (Auto) 0.2 Baso # (Auto) 0.1 WBC Differential . Differential Comment Auto diff final PT 10.9 INR 1.1 APTT 35.5 H Sodium 137 Potassium 3.6 Chloride 98 Carbon Dioxide 32.1 H Anion Gap 7 BUN 7 Creatinine 0.81 Estimated GFR Greater than 89 Random Glucose 104 Lactic Acid Calcium 8.8 04/30/18 00:37 WBC RBC Hgb Hct MCV MCH MCHC RDW Plt Count MPV Neut % (Auto) Lymph % (Auto) [place] % (Auto) Eos % (Auto) Baso % (Auto) Neut # (Auto) Lymph # (Auto) [place] # (Auto) Eos # (Auto) Baso # (Auto) WBC Differential Differential Comment PT INR APTT Sodium Potassium Chloride Carbon Dioxide Anion Gap BUN Creatinine Estimated GFR Random Glucose Lactic Acid 0.8 Calcium - Imaging Impressions Pelvis CT 04/30/18 00:00 CONCLUSION: Findings of perirectal abscess as above. New bony destruction involving the anterior right ilium which could represent donor site for bone graft or malignancy. Correlation with clinical findings is recommended. Assessment and Plan - Plan Allergies/Adverse Reactions: Allergies No Known Allergies Allergy (Verified 04/30/18 15:52) Objective Vital Signs 04/30/18 17:10 04/30/18 17:30 04/30/18 20:00 Temperature 98.4 F 98.5 F 97.5 F L Pulse Rate 72 72 62 Respiratory Rate 25 H 17 18 Blood Pressure 148/70 H 148/71 H 144/75 H Pulse Oximetry 100 100 94 L 04/30/18 23:52 05/01/18 00:00 05/01/18 04:00 Temperature 98.4 F 97.8 F Pulse Rate 62 54 L Respiratory Rate 20 18 18 Blood Pressure 137/65 138/64 Pulse Oximetry 98 100 05/01/18 04:21 05/01/18 06:21 05/01/18 08:00 Temperature 97.2 F L Pulse Rate 58 L Respiratory Rate 20 18 14 Blood Pressure 141/76 H Pulse Oximetry 98 05/01/18 12:00 Temperature 97.6 F Pulse Rate 56 L Respiratory Rate 16 Blood Pressure 129/66 Pulse Oximetry 100 Intake & Output 04/30/18 05/01/18 05/01/18 18:59 06:59 18:59 Intake Total 1127 / 1127 680 / 680 200 / 200 Output Total 1850 / 1850 Balance 1117 / 1117 -1170 / -1170 200 / 200 Weight 78.8 kg Intake: IV 827 / 827 200 / 200 200 / 200 NS Inj 1,000 ML @ 60 mls/hr IV. 527 / 527 CONT .[id number] [facility] Rx#:[id number] Unasyn Inj 3 GM In NS Inj 100 200 / 200 200 / 200 100 / 100 ML @ 200 mls/hr IV.SIG Q6H [facility] Rx#:[id number] Cubicin Inj 650 MG In NS Inj 100 / 100 100 / 100 100 ML @ 200 mls/hr IV.SIG Q24H [facility] Rx#:[id number] Oral 480 / 480 Anesthesia Amount 300 / 300 Output: Urine 1850 / 1850 Estimated Blood Loss Other: # Voids 3 04/30/18 01:50 Blood - Peripheral Aerobic Blood Culture - Preliminary No growth in 1 day 04/30/18 01:50 Blood - Peripheral Anaerobic Blood Culture - Preliminary No growth in 1 day 04/30/18 01:45 Blood - Peripheral Aerobic Blood Culture - Preliminary No growth in 1 day 04/30/18 01:45 Blood - Peripheral Anaerobic Blood Culture - Preliminary No growth in 1 day Lab - Hematology Results 04/29/18 05/01/18 23:15 06:00 WBC 16.7 H 9.9 RBC 3.51 L 3.41 L Hgb 11.0 L 10.9 L Hct 32.3 L 31.6 L MCV 92.1 92.7 MCH 31.3 31.9 MCHC 34.0 34.4 RDW 12.9 13.1 Plt Count 332 286 MPV 8.2 7.9 Neut % (Auto) 79.1 H 69.1 Lymph % (Auto) 10.0 19.7 [place] % (Auto) 9.2 H 7.5 Eos % (Auto) 1.3 3.1 Baso % (Auto) 0.4 0.6 Neut # (Auto) 13.2 H 6.9 Lymph # (Auto) 1.7 2.0 [place] # (Auto) 1.5 H 0.7 Eos # (Auto) 0.2 0.3 Baso # (Auto) 0.1 0.1 WBC Differential . . Differential Comment Auto diff final Auto diff final Lab - Chemistry Results 04/29/18 04/30/18 05/01/18 23:15 00:37 07:00 Sodium 137 140 Potassium 3.6 3.9 Chloride 98 102 Carbon Dioxide 32.1 H 30.8 Anion Gap 7 7 BUN 7 4 L Creatinine 0.81 0.65 Estimated GFR Greater than 89 Greater than 89 Random Glucose 104 97 Lactic Acid 0.8 Calcium 8.8 9.2 Total Bilirubin 0.5 AST 21 ALT 60 Alkaline Phosphatase 178 H Total Creatine Kinase 64 Total Protein 7.4 Albumin 3.4 Imaging: ITS Impressions Pelvis CT 04/30/18 00:00 CONCLUSION: Findings of perirectal abscess as above. New bony destruction involving the anterior right ilium which could represent donor site for bone graft or malignancy. Correlation with clinical findings is recommended. Physical Exam: GENERAL: Patient is a well-nourished, well-developed patient, awake and alert , not in respiratory distress. SKIN: Warm and dry. No generalized rash, no evidence of embolic lesions. EYES: No petechia or hemorrhage. Pupils equal, round and reactive to light. No scleral icterus. EARS, NOSE AND THROAT: No oral lesions noted. No exudate. No oral thrush. NECK: Trachea midline. CARDIOVASCULAR: Regular rate and rhythm. No murmurs, rubs or gallops heard RESPIRATORY: Clear to auscultation. Breath sounds equal bilaterally. No rales , wheezing or rhonchi ABDOMEN: Soft, non-tender, nondistended. Bowel sounds present and normoactive. No guarding. No rebound. No organomegaly. EXTREMITIES: No clubbing, cyanosis, or edema. No joint effusion, has good ROM. All R lower leg incisions are well-healed. Well perfused and warm. BACK: R perireactal region with small open incision. Not much edema, mildl erythema not much induration NEUROLOGICAL: Awake and alert. Cranial nerves grossly intact. Motor grossly within normal limits. PSYCHIATRIC: Normal affect, calm and cooperative. LINE: PICC with no evidence of infection RUE, Assessment and Plan - Plan Impression Perirectal abscess R Infection R tibia, previous open fracture - S/O IM nail fixation August - had revision and IM nail fixation 04/02 - intraop C/S with Staph epidermidis Recommendation Continue Cubicin 800 mg IV daily fu with Dr Lua - pt has appointment scheduled for this month - follow CPK - end date May 19, 2018 Change Unasyn to augmentin for the perirectal abscess when ready for dc switch to augmentin 500 tid to complete 5-10 day course ( longer duration for refractory course), count from day of surgery OK to dc from [facility] once [facility] is arranged D/W RN dw pt dw case mngr
--- NOTE | 2018-05-01 17:14 | P.DCO ---
Post Hospital Infusion Therapy - Infusion Therapy Location of Infusion Therapy: Home Health Care IV Infusion Order - Patient Information Patient Weight: 78.8 kg - Diagnosis (1) Osteomyelitis Code(s): M86.9 - Osteomyelitis, unspecified - Administer Medication Daptomycin Directions: q 24 hours Additional Dosing Instructions: 800 mg IV Start Treatment: 05/01/18 Stop Treatment: 05/19/18 - Additional Information Venous Access: PICC Line Additional Instructions: [x] Peripheral flush and dressing changes per protocol [x] Implanted port and central cell reliner: * Implanted port: 10 ml Normal Saline followed by 5 ml Heparin 100 units/ml Heparin flush after each use and monthly to maintain. [] May leave port accessed during therapy. [] May leave peripheral site accessed for duration of therapy. [x] If patient has SOB or respiratory distress, check oxygen saturation. If less than 90% or clinical signs of respiratory distress, administer oxygen at 2 L/min. via nasal cannula and notify physician. [x] Anaphylaxis/Reaction orders: * Stop infusion. * Keep IV line open with saline flush. * Notify physician. * Monitor vital signs every 15 minutes until symptoms resolve. * Check Oxygen saturation; Oxygen at 2 L/min. via nasal cannula if less than 90% or clinical signs of respiratory distress. * Administer diphenhydramine (Benadryl) 25 mg IV STAT, (unless patient has received as pre-med). May repeat once, if necessary. * Solu-Cortef 250 mg IVP over 30-60 seconds, use 100 mg vials for each dissolution. * Epinephrine (1mg/1 ml) 0.3 mg subcutaneously or IVP now with any signs of respiratory distress. * Check with physician for new additional pre-med orders if patient is re- challenged or re-treated. [x] May remove PICC line when treatment complete, after confirming with Physician. [x] If the patient is admitted to the hospital, the ED, or transferred via [facility] , complete transfer form including medication reconciliation order sheet. Weekly Labs: CBC w/diff, Creatinine, LFTs (Hepatic Function Test), Serum CK Levels Additional Information: fu with Dr Godinez as scheduled - Patient Information Allergies No Known Allergies Allergy (Verified 04/30/18 15:52)
[2018-05-01] MEDS ORDERED: DAPTOmycin Inj 800 MG in Sodium Chlor 0.9% Inj 100 ML IV.SIG SCH (18:00)
--- NOTE | 2018-05-01 18:03 | P.DS ---
Date of admission: 04/30/18 03:37 Primary care physician: No Primary Care Physician Brief History from admission: This is a 23-year-old male with a PMH of Right Tibia Fx who presented w/ c/o rectal pain. 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 Mejia, initially on Vanc q8h, however levels not therapeutic and switched to Cubicin which he's been on for the last 2wks. Comes in now w/ severe rectal pain, 04/07, worse w/ movement, non-radiating. No associated fever/chills. Takes Lortab at home for Osteo w/ no improvement in pain complaints. On arrival, BP 131/57, HR 106, O2 sat 100% on RA, Temp 100.1. WBC 16.7. INR 1.1. Chemistry unremarkable. CT Pelvis with perirectal abscess. New bony destruction involving anterior right ilium, possibly donor site versus malignancy. S/p Zosyn/Flagyl in ER. DS: Diagnosis - Discharge Diagnosis (1) Sepsis Status: Acute (2) Osteomyelitis Status: Acute (3) Sandi-rectal abscess Status: Acute DS: Medications - Discharge Medications Prescriptions: amoxicillin-pot clavulanate [Augmentin] 1 tab PO TID 7 Days #21 tab DS: Summary Hospital Course: 1. Sepsis: Temp 100.7, HR 106, WBC 16.7, Source-Perirectal abscess, s/p IV Abx , follow up cultures. 2. Perirectal Abscess: s/p I/D- continue antibiotics. 3. Osteomyelitis: Right LE, on Cubicin, following w/ Dr. Mejia, has upcoming appt w/ Dr. Graham as outpatient, will continue w/ IV Abx. - Time Spent with Patient Total time spent providing and/or coordinating discharge services: Less than 30 minutes Exam Vital signs: Vital Signs 04/30/18 20:00 04/30/18 23:52 05/01/18 00:00 Temperature 97.5 F L 98.4 F Pulse Rate 62 62 Respiratory Rate 18 20 18 Blood Pressure 144/75 H 137/65 Pulse Oximetry 94 L 98 05/01/18 04:00 05/01/18 04:21 05/01/18 06:21 Temperature 97.8 F Pulse Rate 54 L Respiratory Rate 18 20 18 Blood Pressure 138/64 Pulse Oximetry 100 05/01/18 08:00 05/01/18 12:00 Temperature 97.2 F L 97.6 F Pulse Rate 58 L 56 L Respiratory Rate 14 16 Blood Pressure 141/76 H 129/66 Pulse Oximetry 98 100 Intake & Output 04/30/18 05/01/18 05/01/18 18:59 06:59 18:59 Intake Total 1127 / 1127 680 / 680 200 / 200 Output Total 1850 / 1850 Balance 1117 / 1117 -1170 / -1170 200 / 200 Weight 78.8 kg 78.8 kg Intake: IV 827 / 827 200 / 200 200 / 200 NS Inj 1,000 ML @ 60 mls/hr IV. 527 / 527 CONT .[id number] [facility] Rx#:[id number] Unasyn Inj 3 GM In NS Inj 100 200 / 200 200 / 200 100 / 100 ML @ 200 mls/hr IV.SIG Q6H [facility] Rx#:[id number] Cubicin Inj 650 MG In NS Inj 100 / 100 100 / 100 100 ML @ 200 mls/hr IV.SIG Q24H [facility] Rx#:[id number] Oral 480 / 480 Anesthesia Amount 300 / 300 Output: Urine 1850 / 1850 Estimated Blood Loss Other: # Voids 3 - Constitutional no acute distress - Routine Respiratory Exam Present: CTA bilaterally - Routine Cardiovascular Exam Present: RRR - Routine Abdominal Exam Present: soft - Routine Extremities Exam Comments: no pedal edema. - Routine Neurological Exam Present: alert, oriented X3 Results Procedures completed during hospitalization: I/D of the rectal abscess. Labs on day of discharge: Labs from last 24 hours 05/01/18 05/01/18 07:00 06:00 WBC 9.9 RBC 3.41 L Hgb 10.9 L Hct 31.6 L MCV 92.7 MCH 31.9 MCHC 34.4 RDW 13.1 Plt Count 286 MPV 7.9 Neut % (Auto) 69.1 Lymph % (Auto) 19.7 [place] % (Auto) 7.5 Eos % (Auto) 3.1 Baso % (Auto) 0.6 Neut # (Auto) 6.9 Lymph # (Auto) 2.0 [place] # (Auto) 0.7 Eos # (Auto) 0.3 Baso # (Auto) 0.1 WBC Differential . Differential Comment Auto diff final Sodium 140 Potassium 3.9 Chloride 102 Carbon Dioxide 30.8 Anion Gap 7 BUN 4 L Creatinine 0.65 Estimated GFR Greater than 89 Random Glucose 97 Calcium 9.2 Total Bilirubin 0.5 AST 21 ALT 60 Alkaline Phosphatase 178 H Total Creatine Kinase 64 Total Protein 7.4 Albumin 3.4 Preliminary micro results at discharge 04/30/18 01:50 Aerobic Blood Culture - Preliminary Blood - Peripheral No growth in 1 day Anaerobic Blood Culture - Preliminary No growth in 1 day 04/30/18 01:45 Aerobic Blood Culture - Preliminary Blood - Peripheral No growth in 1 day Anaerobic Blood Culture - Preliminary No growth in 1 day - Impressions ITS Impressions Pelvis CT 04/30/18 00:00 CONCLUSION: Findings of perirectal abscess as above. New bony destruction involving the anterior right ilium which could represent donor site for bone graft or malignancy. Correlation with clinical findings is recommended. Discharge Plan - Discharge Disposition Patient Disposition: /Home Health Service - Discharge Condition Condition: Stable - Physicians Team Primary Care Provider: Primary Care [facility] Attending Provider: Daisy Chairez Other Providers: Sukh Keys MD ; Lanie Mejia MD
[2018-05-01] MEDS ORDERED: Amoxicillin/Clavulanate 500/125 MG Tablet PO SCH (22:00)
[2018-05-02] MEDS ORDERED: DAPTOmycin Inj 800 MG in Sodium Chlor 0.9% Inj 100 ML IV.SIG SCH (11:00)
--- NOTE | 2018-05-08 14:55 | MP ---
cc: Sukh Keys MD, Andrew H MD DATE OF OPERATION: 04/30/2018 PREOPERATIVE DIAGNOSIS: Large ischiorectal abscess. PROCEDURES: Exam under anesthesia with incision and drainage of the ischiorectal abscess. POSTOPERATIVE DIAGNOSIS: Large ischiorectal abscess SURGEON: Sukh Keys MD DESCRIPTION OF PROCEDURE: The patient was placed in the left lateral decubitus position. After adequate anesthesia sedation, his buttocks were taped apart, prepped with Betadine solution and draped in the usual sterile fashion. Examination of the anorectal area revealed induration and thickening of the area on the left side of the anal canal. Digital exam was performed and no masses were noted. [place] anoscope was inserted and the rectum appeared normal and there were no internal openings draining purulent fluid. A radial incision was therefore made over the indurated area entering a cavity full of purulent fluid, very foul smelling. The cavity was then explored digitally and some loculations broken up. It did extend anterior and posterior for several centimeters. Ellipse of skin was taken out to enable better drainage. Hemostasis achieved with electrocautery. The cavity was irrigated copiously and packed loosely with a Kerlix gauze and a large fluff dressing placed externally. The patient tolerated the procedure quite well and was brought to the recovery room in stable condition. Sukh Keys MD AHR/ct , 02:22 PM , 02:27 PM
== END 2018-05-01 18:41 | disposition home health service (06) ==
LOC: NEPE 18:26 → NEDA 18:26 → OBSVTOIN 04-30 03:32 → N07 04-30 12:35
PROVIDERS: ADMIT Internal Medicine; ATTEND Internal Medicine